=== PATIENT | male | born 1955 | race Caucasian/White ===

== ENCOUNTER → 2016-10-27 | Outpatient (CLI) | payer BC ==
[~2016-10-27] MED LIST: FEXO1TAB46 PO; GADAVIST IV PRN; IBUP-1050 PO; OMEG10007 PO; PROB500T8 PO
--- NOTE | 2016-10-27 17:15 | DIAGNOSTIC IMAGING REPORT ---
MRI OF THE BRAIN WITHOUT AND WITH IV CONTRAST CLINICAL HISTORY: LEFT FACIAL PARESTHESIA POSSIBLE STROKE COMPARISON STUDY: No previous studies for comparison. TECHNIQUE: MRI of the brain was performed from the vertex to the skull base utilizing various T1 and T2 weighted sequences. Following the IV administration of 10 mL of Gadavist contrast, additional enhanced images were obtained. FINDINGS: Sagittal T1, axial diffusion, proton density and T2 weighted axial, coronal FLAIR, and pre and post axial T1-weighted images were acquired. These were supplemented with post gadolinium coronal T1 weighted images. No intra or extra-axial mass lesions are visualized. Axial diffusion-weighted images reveal no evidence of acute or subacute infarction. There is no evidence of ventricular dilatation. Proton density T2-weighted and FLAIR images reveal a few foci of increased T2 signal within the white matter, likely on a small vessel basis, and not unexpected for age. There are no abnormal flow voids. There is no evidence of pathologic enhancement. There is a right maxillary sinus retention cyst. IMPRESSION: 1. No acute intracranial findings 2. No evidence of acute or subacute infarction 3. No evidence of intracranial mass Electronically signed by: Dev Rios M.D. 10/27/2016 5:14 PM Dictated Date/Time: 10/27/2016 5:11 PM
== END | disposition home or self-care (01) ==
LOC: C.MRI 15:51
PROVIDERS: ATTEND Internal Medicine
DX: G51.0 Bell's palsy (principal)

== ENCOUNTER → 2017-05-22 | Day surgery (SDC) | payer BC ==
[~2017-05-22] VITALS: Ht 185.4 cm; Wt 112.3 kg
[~2017-05-22] MED LIST changes: -GADAVIST IV PRN; +LIDOCAINE HCL 2% 2 ML VIAL (20MG/ML) ONE; +PROPOFOL IV EMULSION 10 MG/ML 20 ML VIAL IV ONE
[2017-05-22 12:38] VITALS: TEMP 37.1
[2017-05-22 12:41] VITALS: Ht 185.4 cm; Wt 112.3 kg
--- NOTE | 2017-05-22 13:57 | Endo History and Physical ---
History & Physical Date of Service: May 22, 2017. Chief Complaint: HX COLON CA Referring Physician: DR. CHRISTINE ESTRADA History of Present Illness For colonoscopy Past Medical History Gastrointestinal Disorder, Cancer Past Surgical History Hx Cardiac Surgery: No Hx Internal Defibrillator: No Hx Pacemaker: No Hx Abdominal Surgery: Yes (COLON) Hx of Implantable Prosthesis: No Hx Post-Op Nausea and Vomiting: No Hx Cancer Surgery: Yes Hx Thoracic Surgery: No Hx Orthopedic: No Hx Urinary Tract Surgery: No Family History Colon CA Social History Smoking Status: Former Smoker Hx Substance Use: No Allergies Coded Allergies: Allopurinol (Verified Allergy, Intermediate, HIVES AND ITCHING, 05/22/17) Uncoded Allergies: UNCLAS THER/AG (Allergy, Unknown, ENVIRONMENTAL WOOL, 10/26/09) Current Medications Reported Home Medications Medications Dose Route/Sig Max Daily Dose Days Date Category [place]-3 (Fish Oil) 1 Ea Cap 1 Cap PO QD 05/22/17 Reported Advil (Ibuprofen) 200 Mg Tab 200-600 Mg PO Q4H PRN 05/01/14 Reported Yaneth (Fexofenadine Hcl) 180 Mg Tab 180 Mg PO DAILY 05/01/14 Reported Benemid (Probenecid) 500 Mg Tab 500 Mg PO BID 06/12/09 Reported Vital Signs Weight (Kilograms): 112.27 Height (Feet): 6 Height (Inches): 1 Date Time Temp Pulse Resp B/P (MAP) Pulse Ox O2 Delivery O2 Flow Rate FiO2 05/22/17 12:38 37.1 81 18 162/87 (112) 97 Room Air Physical Exam General Appearance: WD/WN Respiratory/Chest: Respiratory effort: no dyspnea Cardiovascular: Heart Auscultation: RRR Abdomen: Inspection & Palpation: soft Assessment and Plan Colon cancer for colonoscopy
--- NOTE | 2017-05-22 14:16 | Discharge Instructions ---
Endoscopy Patient Instructions Date / Procedure(s) Performed May 22, 2017. Colonoscopy Allergy Information Coded Allergies: Allopurinol (Verified Allergy, Intermediate, HIVES AND ITCHING, 05/22/17) Uncoded Allergies: UNCLAS THER/AG (Allergy, Unknown, ENVIRONMENTAL WOOL, 10/26/09) Discharge Date / Findings May 22, 2017. rectal polyp Medication Instructions Restart Stopped Medication(s): resume meds Reported Home Medications Medications Dose Route/Sig Max Daily Dose Days Date Category [place]-3 (Fish Oil) 1 Ea Cap 1 Cap PO QD 05/22/17 Reported Advil (Ibuprofen) 200 Mg Tab 200-600 Mg PO Q4H PRN 05/01/14 Reported Yaneth (Fexofenadine Hcl) 180 Mg Tab 180 Mg PO DAILY 05/01/14 Reported Benemid (Probenecid) 500 Mg Tab 500 Mg PO BID 06/12/09 Reported Provider Instructions Activity Restrictions - No exercising or heavy lifting for 24 hours. - Do not drink alcohol the day of the procedure. - Do not drive a car or operate machinery until the day after the procedure. - Do not make any important decisions or sign important papers in 24 hours after the procedure. Following Day: - Return to full activity which may include returning to work/school. Diet Start your diet with liquids and light foods (jello, soup, juice, toast). Then eat your usual diet if not nauseated. Treatment For Common After Affects For mild abdominal pain, bloating, or excessive gas: - Rest - Eat lightly - Lie on right side Follow-Up Information Follow-up with DR. CHRISTINE ESTRADA as scheduled Anesthesia Information What You Should Know You have had a procedure that required some medicine to reduce anxiety and discomfort. This treatment is called moderate sedation. After receiving the treatment, you may be sleepy, but you will be able to breathe on your own. The effects of the treatment may last for several hours. Follow these instructions along with Activity/Diet recommendations noted above: * Do NOT do anything where dizziness or clumsiness would be dangerous. * Rest quietly at home today, then you can be up and about tomorrow. * Have a responsible person stay with you the rest of today. * You may have had an I.V. today. If so, you may take the dressing off later today. Recommendations Call your doctor if: * Trouble breathing * Continuous vomiting for more than 24 hours * Temperature above 101 degrees * Severe abdominal pain or bloating * Pain not relieved by pain medicine ordered * There is increased drainage or redness from any incision * A large amount of rectal bleeding greater than 2-3 tablespoons. (If you had a polyp/s removed or have hemorrhoids, a small amount of blood - from the rectum is to be expected.) * You have any unanswered questions or concerns. IN THE EVENT OF A SERIOUS EMERGENCY, GO TO THE NEAREST EMERGENCY ROOM Your discharge instructions were prepared by provider Pablo Dominguez. Patient Instructions Signature Page Mehnaz Marques Patient (or Guardian) Signature/Date: I have read and understand the instructions given to me by my caregivers. Caregiver/RN/Doctor Signature/Date: The above-named patient and/or guardian has received patient instructions on this date. + Original Patient Signature Page (only) stays with chart. Please make copy for patient.
--- NOTE | 2017-05-22 14:19 | GI REPORT ---
Procedure Date: 05/22/2017 1:56 PM Procedure: Colonoscopy Indications: Personal history of malignant neoplasm of the colon Medicines: Propofol total dose 120 mg IV, Lidocaine 40 mg IV Complications: No immediate complications. Estimated Blood Loss: Estimated blood loss was minimal. Estimated blood loss was minimal. Procedure: Pre-Anesthesia Assessment: - Prior to the procedure, a History and Physical was performed, and patient medications, allergies and sensitivities were reviewed. The patient's tolerance of previous anesthesia was reviewed. - The risks and benefits of the procedure and the sedation options and risks were discussed with the patient. All questions were answered and informed consent was obtained. After I obtained informed consent, the scope was passed under direct vision. Throughout the procedure, the patient's blood pressure, pulse, and oxygen saturations were monitored continuously. The scope was introduced through the anus and advanced to the terminal ileum. The colonoscopy was performed without difficulty. The patient tolerated the procedure well. The quality of the bowel preparation was good. Findings: There was evidence of a prior end-to-side ileo-rectal anastomosis in the recto-sigmoid colon. This was patent and was characterized by inflammation. The anastomosis was traversed. The terminal ileum appeared normal. A 4 mm polyp was found in the rectum. The polyp was sessile. The polyp was removed with a cold snare. Resection and retrieval were complete. Estimated blood loss was minimal. Impression: - Patent end-to-side ileo-rectal anastomosis, characterized by inflammation. - The examined portion of the ileum was normal. - One 4 mm polyp in the rectum, removed with a cold snare. Resected and retrieved. Recommendation: - Discharge patient to home (ambulatory). - Continue present medications. - Await pathology results. - Return to primary care physician PRN. Pablo Dominguez M.D. Pablo Dominguez MD 05/22/2017 2:19:22 PM This report has been signed electronically. Note Initiated On: 05/22/2017 1:56 PM I attest to the content of the Intraoperative Record and orders documented therein, exceptions below
[2017-05-22 14:48] VITALS: BP 139/86; PULSE 73; O2SAT 96
--- NOTE | 2017-06-01 11:58 | Anesthesiology Progress Note ---
Anesthesia Post Op Note Date & Time Jun 01, 2017 at 11:57 Vital Signs Pain Intensity: 0 Notes Mental Status: alert / awake / arousable, participated in evaluation Pt Amnestic to Procedure: Yes Nausea / Vomiting: adequately controlled Pain: adequately controlled Airway Patency, RR, SpO2: stable & adequate BP & HR: stable & adequate Hydration State: stable & adequate Anesthetic Complications: no major complications apparent Patient seen 05/22/2017 in recovery. VSS. No complications.
== END | disposition home or self-care (01) ==
LOC: C.GI 12:10
PROVIDERS: ATTEND Internal Medicine Gastroenterology
DX: Z08 Encounter for follow-up examination after completed treatment for malignant neoplasm (principal); D12.8 Benign neoplasm of rectum; Z85.038 Personal history of other malignant neoplasm of large intestine; Z87.891 Personal history of nicotine dependence; Z90.49 Acquired absence of other specified parts of digestive tract; Z80.0 Family history of malignant neoplasm of digestive organs

== ENCOUNTER → 2017-10-14 | Outpatient (CLI) | payer OTHER ==
[~2017-10-14] MED LIST changes: -LIDOCAINE HCL 2% 2 ML VIAL (20MG/ML) ONE; -PROPOFOL IV EMULSION 10 MG/ML 20 ML VIAL IV ONE
--- NOTE | 2017-10-14 09:30 | DIAGNOSTIC IMAGING REPORT ---
KNEE 3 VIEWS CLINICAL HISTORY: R KNEE XRAY pain. Trauma. COMPARISON: None. DISCUSSION: Mild degenerative change all major joint compartments. No evidence for fracture or dislocation. No significant joint effusion. There is no evidence for soft tissue swelling. IMPRESSION: Mild degenerative change. No acute process. The above report was generated using voice recognition software. It may contain grammatical, syntax or spelling errors. Electronically signed by: Luis Bailey M.D. 10/14/2017 9:29 AM Dictated Date/Time: 10/14/2017 9:28 AM
== END | disposition home or self-care (01) ==
LOC: C.RAD1850 09:11
PROVIDERS: ATTEND Nurse Practitioner
DX: M25.561 Pain in right knee (principal)

== ENCOUNTER 2017-10-19 10:31 | Emergency (ER) | payer OTHER ==
[~2017-10-19] VITALS: Ht 185.4 cm; Wt 104.0 kg
[2017-10-19 10:34] VITALS: TEMP 36.4; Ht 185.4 cm; Wt 104.0 kg
[2017-10-19] MEDS ORDERED: OPTIRAY 320 IV PRN (11:15)
--- NOTE | 2017-10-19 11:18 | EMERGENCY ROOM VISIT NOTE ---
History Report prepared by Ildefonso: Ruby Day Under the Supervision of: Dr. Lenin Alba M.D. First contact with patient: 11:03 Chief Complaint: ABDOMINAL PAIN Stated Complaint: RIGHT SIDE - PAIN IN LEFT ABD/FLANK AREA - WC History of Present Illness The patient is a 62 year old male who presents to the Emergency Room with complaints of an episode of a fall occurring about a week ago. 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 The patient states when he fell on his right side. He states he "hurt" his right knee and right side. He notes right sided abdominal pain, right side flank pain, and right sided back pain. He denies any bruising, rib pain or blood in his urine. Presently, the patient rates his pain as an 8/10. He reports taking an 800 mg ibuprofen this morning. The patient's fall occurred on 10/13/16. He reports he already had an x-ray of his knee done which was unremarkable. The patient states he has been unable to sleep since his fall because of his pain. The patient was sent to the ED by occupational medicine. The patient has a history of colon cancer. Source of History: patient Onset: about a week ago Position: other (generalized) Quality: other (fall) Timing: other (episode) Associated Symptoms: + abdominal pain, No urinary symptoms Review of Systems See HPI for pertinent positives & negatives. A total of 10 systems reviewed and were otherwise negative. Past Medical & Surgical Medical Problems: (1) Colon cancer Surgical Problems: (1) History of appendectomy Family History Patient reports no known family medical history. Social History Smoking Status: Former Smoker Marital Status: Housing Status: lives with significant other Occupation Status: employed Current/Historical Medications Scheduled Fexofenadine Hcl (Yaneth), 180 MG PO DAILY Fish Oil ([place]-3), 1 CAP PO QD Probenecid (Benemid), 500 MG PO BID Scheduled PRN Ibuprofen (Advil), 800 MG PO Q4H PRN for Pain Allergies Coded Allergies: Allopurinol (Verified Allergy, Intermediate, HIVES AND ITCHING, 05/22/17) Uncoded Allergies: UNCLAS THER/AG (Allergy, Unknown, ENVIRONMENTAL WOOL, 10/26/09) Physical Exam Vital Signs Date Time Temp Pulse Resp B/P (MAP) Pulse Ox O2 Delivery O2 Flow Rate FiO2 10/19/17 14:30 72 20 98 10/19/17 13:56 78 20 139/73 95 Room Air 10/19/17 12:17 72 20 134/79 96 Room Air 10/19/17 10:34 36.4 76 20 158/95 100 Room Air Physical Exam GENERAL: Patient is in no acute distress. HEENT: No acute trauma, normocephalic atraumatic, mucous membranes moist, no nasal congestion, no scleral icterus. NECK: No stridor, no adenopathy, no meningismus, trachea is midline. LUNGS: Clear to auscultation bilaterally, no wheeze, no rhonchi, breath sounds equal. HEART: Without murmurs gallops or rubs, regular rate and rhythm. ABDOMEN: Tenderness along entire right side, no contusion, no peritonitis, no obvious hernia. Back: Tender along entire right lumbar musculature, no midline bony step-off or tenderness. CHEST: Slightly tender to right posterior ribs, no contusion. EXTREMITIES: No cyanosis or edema, full range of motion of all the joints without pain or difficulty, no signs for acute trauma. NEUROLOGIC: Oriented x 3, no acute motor or sensory deficits, no focal weakness. SKIN: No rash, no jaundice, no diaphoresis. Medical Decision & Procedures ER Provider Diagnostic Interpretation: Radiology results as stated below per my review and radiologist interpretation: TWO VIEW CHEST FINDINGS: PA and lateral chest radiographs are obtained. No prior studies are available for comparison at the time of dictation. The heart is top normal for projection. The pulmonary vasculature is noncongested. The lungs and pleural spaces are clear. There is no pneumothorax. The bony thorax is grossly intact. IMPRESSION: No acute cardiopulmonary abnormality. Electronically signed by: Lenin Sanchez M.D. L-SPINE MIN 4 VIEWS ROUTINE FINDINGS: There is slight retrolisthesis of L4 and L5. There is marked disc space narrowing at L4-L5 and L5-S1. No acute lumbar spine fracture is identified. There is moderate multilevel facet arthrosis. Moderate small bowel dilatation is noted. IMPRESSION: 1. No acute lumbar spine fracture or subluxation. 2. Moderate small bowel dilatation which could reflect a small bowel obstruction or ileus. 3. Severe multilevel degenerative disc disease and moderate multilevel facet arthrosis. Electronically signed by: Jose Juan Payne M.D. CT SCAN OF THE ABDOMEN AND PELVIS WITH IV CONTRAST FINDINGS: Lung bases: The heart is normal in size and without pericardial effusion. There are scattered coronary artery calcifications. Emphysematous change is suspected. There is no airspace consolidation or pleural effusion. Dependent atelectasis is observed. No pneumothorax is identified at the lung bases. Liver: The right lobe and the right portal vein appear diminutive. 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 The contrast-enhanced liver is otherwise normal in size, contour, and attenuation. There is no intrahepatic biliary ductal dilatation. The hepatic veins and portal veins are patent. Gallbladder: Unremarkable. Spleen: Normal in size and attenuation. Pancreas: Unremarkable. Adrenal glands: Unremarkable. Kidneys: The contrast enhanced kidneys are normal in size and without hydronephrosis. The kidneys enhance symmetrically. Abdominal vasculature: The abdominal aorta is normal in course and caliber noting mild atherosclerotic calcification. Bowel: A large duodenal diverticulum is noted. There are postoperative changes from subtotal colectomy with ileocolic anastomosis. The distal small bowel are mildly distended and fluid-filled measuring up to 3.6 cm. There is no convincing evidence of bowel obstruction anastomosis is widely patent. Peritoneum: There is no intraperitoneal free air or abdominal ascites. Lymphadenopathy: Prominent mesenteric lymph nodes measure up to 12 mm in short axis. Pelvic viscera: The bladder, prostate, and seminal vesicles are normal as imaged. Skeletal structures: No fracture is seen. There is mild to moderate lumbosacral spondylosis. A large hemangioma seen in the body of L1. No lytic or blastic lesions are identified. IMPRESSION: 1. There is no evidence of solid organ injury in the abdomen or pelvis. 2. There are postoperative changes from subtotal colectomy with ileocolic anastomosis. 3. There are numerous mildly distended and fluid-filled loops of distal small bowel. The anastomosis appears patent and this is of indeterminant etiology and significance. This may represent compensatory change due to subtotal colectomy or possibly a nonspecific enteritis. A low-grade/partial small bowel obstruction would be difficult to exclude but is considered less likely. Clinical correlation will be required. Electronically signed by: Lenin Sanchez M.D. Laboratory Results 10/19/17 11:30 10/19/17 11:30 Test 10/19/17 11:16 1/29/18 11:30 Urine Color DK YELLOW Urine Appearance CLEAR (CLEAR) Urine pH 6.0 (4.5-7.5) Urine Specific Many 1.027 (1.000-1.030) Urine Protein NEG (NEG) Urine Glucose (UA) NEG (NEG) Urine Ketones TRACE (NEG) Urine Occult Blood NEG (NEG) Urine Nitrite NEG (NEG) Urine Bilirubin NEG (NEG) Urine Urobilinogen NEG (NEG) Urine Leukocyte Esterase NEG (NEG) Red Blood Count 4.99 M/uL (4.7-6.1) Mean Corpuscular Volume 92.4 fL (80-100) Mean Corpuscular Hemoglobin 32.9 pg (25-34) Mean Corpuscular Hemoglobin Concent 35.6 g/dl (32-36) RDW Standard Deviation 42.4 fL (36.4-46.3) RDW Coefficient of Variation 12.5 % (11.5-14.5) Mean Platelet Volume 11.1 fL (7.4-10.4) Anion Gap 9.0 mmol/L (3-11) Est Creatinine Clear Calc Drug Dose 96.3 ml/min Estimated GFR () 91.5 Estimated GFR (Non- 79.0 BUN/Creatinine Ratio 21.4 (10-20) Calcium Level 8.8 mg/dl (8.5-10.1) Laboratory results reviewed by me. ED Course 1104: The patient was evaluated in room C5. A complete history and physical exam was performed. 1407: I updated the patient on his test results. 1420: Reevaluated the patient. Discussed results and discharge instructions: He verbalized understanding and agreement. The patient is ready for discharge. Medical Decision Differential diagnoses: lumbar fracture, lumbar contusion, liver or kidney injury, electrolyte imbalance, anemia, hematuria, abdominal wall hematoma. There is no leukocytosis or concerning anemia. No significant electrolyte abnormality or kidney failure. Urinalysis does not show hematuria or infection. Lumbar spine series does not show evidence for fracture. Chest film does not show pneumonia or rib fracture. Abdominal and pelvis CT shows changes consistent with his colectomy, no evidence for acute traumatic process. Ileus was questioned on the CT. The patient has been having regular and normal bowel movements, I suspect the changes on CT are from the colectomy, I do not think he has a bowel obstruction or ileus. The patient was reassured by his testing. He appears contused I believe from the fall. He can continue to follow with his occupational medicine physician. Medication Reconcilliation Current Medication List: was personally reviewed by me Blood Pressure Screening Patient's blood pressure: Elevated blood pressure Blood pressure disposition: Elevated BP felt to be situational Impression Primary Impression: Right sided abdominal pain Additional Impressions: Right flank pain Right low back pain Status post fall Scribe Attestation The scribe's documentation has been prepared under my direction and personally reviewed by me in its entirety. I confirm that the note above accurately reflects all work, treatment, procedures, and medical decision making performed by me. Departure Information Dispostion Home / Self-Care Referrals Michael Eng M.D. (PCP) Forms Call Back Authorization, HOME CARE DOCUMENTATION FORM, IMPORTANT VISIT INFORMATION Patient Instructions My [facility] MDconnectME Additional Instructions tylenol for pain heat to the sore areas may help follow with occupational medicine for work advice lab testing and imaging was ok today--no traumatic findings return if worsening Problem Qualifiers
[2017-10-19 11:44] LABS: HEMATOCRIT 46.1 % (42-52); HEMOGLOBIN 16.4 g/dL (14.0-18.0); MEAN CELL VOLUME 92.4 fL (80-100); MEAN CORPUSCULAR HEMOGLOBIN 32.9 pg (25-34); MEAN CORPUSCULAR HGB CONC 35.6 g/dl (32-36); MEAN PLATELET VOLUME 11.1 fL (7.4-10.4); PLATELET COUNT 163 K/uL (130-400); RED CELL DISTRIBUTION WIDTH CV 12.5 % (11.5-14.5); RED CELL DISTRIBUTION WIDTH SD 42.4 fL (36.4-46.3); WHITE BLOOD COUNT 8.05 K/uL (4.8-10.8)
[2017-10-19 12:04] LABS: CALCIUM 8.8 mg/dl (8.5-10.1); CREATININE 1.02 mg/dl (0.60-1.40)
--- NOTE | 2017-10-19 12:15 | DIAGNOSTIC IMAGING REPORT ---
TWO VIEW CHEST CLINICAL HISTORY: Fall. Right-sided chest wall pain.. FINDINGS: PA and lateral chest radiographs are obtained. No prior studies are available for comparison at the time of dictation. The heart is top normal for projection. The pulmonary vasculature is noncongested. The lungs and pleural spaces are clear. There is no pneumothorax. The bony thorax is grossly intact. IMPRESSION: No acute cardiopulmonary abnormality. Electronically signed by: Lenin Sanchez M.D. 10/19/2017 12:13 PM Dictated Date/Time: 10/19/2017 12:10 PM
--- NOTE | 2017-10-19 12:33 | DIAGNOSTIC IMAGING REPORT ---
L-SPINE MIN 4 VIEWS ROUTINE CLINICAL HISTORY: Back pain following fall. COMPARISON: None FINDINGS: There is slight retrolisthesis of L4 and L5. There is marked disc space narrowing at L4-L5 and L5-S1. No acute lumbar spine fracture is identified. There is moderate multilevel facet arthrosis. Moderate small bowel dilatation is noted. IMPRESSION: 1. No acute lumbar spine fracture or subluxation. 2. Moderate small bowel dilatation which could reflect a small bowel obstruction or ileus. 3. Severe multilevel degenerative disc disease and moderate multilevel facet arthrosis. Electronically signed by: Jose Juan Payne M.D. 10/19/2017 12:32 PM Dictated Date/Time: 10/19/2017 12:30 PM
--- NOTE | 2017-10-19 13:43 | DIAGNOSTIC IMAGING REPORT ---
CT SCAN OF THE ABDOMEN AND PELVIS WITH IV CONTRAST CLINICAL HISTORY: Trauma. COMPARISON STUDY: Abdominal CT dated 05/24/2009. TECHNIQUE: Following the IV administration of 94 cc of Optiray 320, CT scan of the abdomen and pelvis is performed from the lung bases to the proximal femora. Images are reviewed in the axial, sagittal, and coronal planes. IV contrast was administered without complication. A dose lowering technique was utilized adhering to the principles of ALARA. CT DOSE: 777.32 mGy.cm FINDINGS: Lung bases: The heart is normal in size and without pericardial effusion. There are scattered coronary artery calcifications. Emphysematous change is suspected. There is no airspace consolidation or pleural effusion. Dependent atelectasis is observed. No pneumothorax is identified at the lung bases. Liver: The right lobe and the right portal vein appear diminutive. 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 The contrast-enhanced liver is otherwise normal in size, contour, and attenuation. There is no intrahepatic biliary ductal dilatation. The hepatic veins and portal veins are patent. Gallbladder: Unremarkable. Spleen: Normal in size and attenuation. Pancreas: Unremarkable. Adrenal glands: Unremarkable. Kidneys: The contrast enhanced kidneys are normal in size and without hydronephrosis. The kidneys enhance symmetrically. Abdominal vasculature: The abdominal aorta is normal in course and caliber noting mild atherosclerotic calcification. Bowel: A large duodenal diverticulum is noted. There are postoperative changes from subtotal colectomy with ileocolic anastomosis. The distal small bowel are mildly distended and fluid-filled measuring up to 3.6 cm. There is no convincing evidence of bowel obstruction anastomosis is widely patent. Peritoneum: There is no intraperitoneal free air or abdominal ascites. Lymphadenopathy: Prominent mesenteric lymph nodes measure up to 12 mm in short axis. Pelvic viscera: The bladder, prostate, and seminal vesicles are normal as imaged. Skeletal structures: No fracture is seen. There is mild to moderate lumbosacral spondylosis. A large hemangioma seen in the body of L1. No lytic or blastic lesions are identified. IMPRESSION: 1. There is no evidence of solid organ injury in the abdomen or pelvis. 2. There are postoperative changes from subtotal colectomy with ileocolic anastomosis. 3. There are numerous mildly distended and fluid-filled loops of distal small bowel. The anastomosis appears patent and this is of indeterminant etiology and significance. This may represent compensatory change due to subtotal colectomy or possibly a nonspecific enteritis. A low-grade/partial small bowel obstruction would be difficult to exclude but is considered less likely. Clinical correlation will be required. Electronically signed by: Lenin Sanchez M.D. 10/19/2017 1:42 PM Dictated Date/Time: 10/19/2017 1:27 PM
[2017-10-19 13:56] VITALS: BP 139/73
[2017-10-19 14:30] VITALS: PULSE 72; O2SAT 98
== END 2017-10-19 14:33 | disposition home or self-care (01) ==
LOC: C.EDB 10:35 → C.EDC 14:33
DX: R10.9 Unspecified abdominal pain (principal); M54.5 Low back pain; W10.8XXA Fall (on) (from) other stairs and steps, initial encounter; Y99.0 Civilian activity done for income or pay; Y93.89 Activity, other specified; Y92.89 Other specified places as the place of occurrence of the external cause; Z90.49 Acquired absence of other specified parts of digestive tract; Z85.038 Personal history of other malignant neoplasm of large intestine; Z87.891 Personal history of nicotine dependence

== ENCOUNTER 2017-10-21 15:13 | Inpatient (IN) | payer OTHER ==
[~2017-10-21] VITALS: Ht 185.4 cm; Wt 103.2 kg
[2017-10-21] MEDS ORDERED: OPTIRAY 320 IV PRN (17:00)
[2017-10-21 17:52] LABS: BASO % 0.2 %; BASO ABS # 0.02 K/uL (0-0.2); EOS % 0.5 %; EOS ABS # 0.05 K/uL (0-0.5); HEMATOCRIT 44.9 % (42-52); HEMOGLOBIN 16.1 g/dL (14.0-18.0); IG# 0.03 K/uL (0.00-0.02); LYMPH % 15.7 %; LYMPH ABS # 1.43 K/uL (1.2-3.4); MEAN CELL VOLUME 91.4 fL (80-100); MEAN CORPUSCULAR HEMOGLOBIN 32.8 pg (25-34); MEAN CORPUSCULAR HGB CONC 35.9 g/dl (32-36); MEAN PLATELET VOLUME 11.1 fL (7.4-10.4); MONO % 10.2 %; MONO ABS # 0.93 K/uL (0.11-0.59); NEUT % 73.1 %; NEUT ABS # 6.64 K/uL (1.4-6.5); PLATELET COUNT 176 K/uL (130-400); RED CELL DISTRIBUTION WIDTH CV 12.1 % (11.5-14.5); RED CELL DISTRIBUTION WIDTH SD 40.7 fL (36.4-46.3)
[2017-10-21 18:16] LABS: ALBUMIN 3.6 gm/dl (3.4-5.0); CALCIUM 9.4 mg/dl (8.5-10.1); CREATININE 0.92 mg/dl (0.60-1.40); TOTAL PROTEIN 7.6 gm/dl (6.4-8.2)
--- NOTE | 2017-10-21 19:26 | DIAGNOSTIC IMAGING REPORT ---
ABDOMEN AND PELVIS CT WITH IV AND ORAL CONTRAST CT DOSE: 831.31 mGy.cm HISTORY: Diffuse abdominal pain. Fall. History of small bowel obstruction. TECHNIQUE: Multiaxial CT images of the abdomen and pelvis were performed following the use of intravenous and oral contrast. A dose lowering technique was utilized adhering to the principles of ALARA. COMPARISON STUDY: Abdomen and pelvis CT 10/19/2017. FINDINGS: The lung bases are clear. There is a small bleb within the left lung base. No pneumoperitoneum. No pneumatosis. No fractures within the visualized osseous structures. There is a 3 cm diverticulum at the second portion of the duodenum. Small focus of nodular thickening of the gallbladder fundus favors adenomyomatosis. This remains unchanged. The liver, spleen, adrenal glands, and pancreas are unremarkable. Mild bilateral perinephric edema. Normal bladder. No hydronephrosis. No retroperitoneal lymphadenopathy. Normal bladder. Status post subtotal colectomy with ileocolonic anastomosis at the mid sigmoid colon:. There again noted multiple distended and fluid-filled loops of small bowel seen throughout the abdomen. These measure up to 4.1 cm in diameter. The degree of small bowel distention is slightly progressed. A clear transition point is not well identified. However, there is a decompressed short segment of small bowel within the right mid abdomen on image 279. Therefore, this could represent a transition point for a small bowel obstruction. The proximal loops of jejunum are decompressed. IMPRESSION: 1. Multiple mildly distended fluid-filled loops of small bowel have progressed. A clear transition point is not well-defined. However there is a short segment of decompressed small bowel in the right mid abdomen which could represent a transition point for a small bowel obstruction. 2. Postoperative changes as described above. Electronically signed by: Gopi Gooden M.D. 10/21/2017 7:25 PM Dictated Date/Time: 10/21/2017 7:13 PM
[2017-10-21] MEDS ORDERED: MoRPHine SULFATE 10 MG/ML CARP/VIAL IV STA (19:59)
[2017-10-21] MEDS ORDERED: ONDANSETRON INJ 2 MG/ML 2 ML VIAL IV STA (19:59)
[2017-10-21] MEDS ORDERED: HEPARIN SOD 5000 UNIT/0.5 ML CARP SQ SCH (21:45)
[2017-10-21] MEDS ORDERED: ONDANSETRON INJ 2 MG/ML 2 ML VIAL IV PRN (21:45)
--- NOTE | 2017-10-21 21:49 | History and Physical ---
History & Physical Date & Time of Service: Oct 21, 2017 at 21:37 Chief Complaint: Stomach Ache Primary Care Physician: Michael Eng M.D. History of Present Illness Source: patient 62 y/o M Hx HPL, subtotal colectomy 2000 due to colon CA. Presenting with abdominal pain and nausea x 3 days. His symptoms followed a fall onto his R side at work. He states that he becomes distended when trying to eat or drink a small amount. He has not vomited. A CT abdomen was obtained in the ER and is consistent with an SBO. He has not had any previous obstructions. Past Medical/Surgical History 1) Colon CA - resected with subtotal colectomy and anastomosis at mid sigmoid 2000. Did not require chemo radiation. Family History Patient reports no known family medical history. Father due to complications of Alzheimer dementia Social History Smoking Status: Never Smoker Marital Status: Occupational Status: employed Immunizations History of Influenza Vaccine: No History of Tetanus Vaccine?: No History of Pneumococcal: No History of Hepatitis B Vaccine: No Multi-Drug Resistant Organisms History of MDRO: No Allergies Coded Allergies: Allopurinol (Verified Allergy, Intermediate, HIVES AND ITCHING, 05/22/17) Uncoded Allergies: UNCLAS THER/AG (Allergy, Unknown, ENVIRONMENTAL WOOL, 10/26/09) Home Medications Scheduled Fexofenadine Hcl (Yaneth), 180 MG PO DAILY Fish Oil ([place]-3), 1 CAP PO QD Probenecid (Benemid), 500 MG PO BID Review of Systems Constitutional: No fever, No chills, No sweats Eyes: No worsening of vision ENT: No hearing loss, No unusual epistaxis, No nasal symptoms Respiratory: No cough, No sputum, No wheezing Cardiovascular: No chest pain, No orthopnea, No PND Abdomen: + pain, + nausea, No vomiting Musculoskeletal: No joint pain Genitourinary - Male: No hematuria, No dysuria, No urinary frequency Neurologic: No memory loss, No paralysis, No weakness Psychiatric: No depression symptoms Endocrine: No fatigue Hematologic / Lymphatic: No abnormal bleeding/bruising Integumentary: No rash Allergic / Immunologic: No environmental allergies Physical Exam Vital Signs Date Time Temp Pulse Resp B/P (MAP) Pulse Ox O2 Delivery O2 Flow Rate FiO2 10/21/17 20:18 79 16 154/88 96 Room Air 10/21/17 18:54 80 18 162/91 95 Room Air 10/21/17 15:26 36.8 83 16 164/99 96 Room Air General Appearance: WD/WN, no apparent distress Head: normocephalic Eyes: normal inspection ENT: normal ENT inspection, pharynx normal Neck: supple, no JVD Respiratory/Chest: chest non-tender, lungs clear, normal breath sounds Cardiovascular: regular rate, rhythm, no edema, no gallop Abdomen/GI: + tenderness, + guarding, + pertinent finding (Very diffusely tender abdomen R > L- pt guards when lightly palpated) Back: normal inspection, no CVA tenderness Extremities/Musculoskelatal: normal inspection, no calf tenderness, normal capillary refill, no pedal edema, normal range of motion 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, no motor/sensory deficits, alert, oriented x 3 Skin: normal color Diagnostics Laboratory Results Results Past 24 Hours Test 10/21/17 17:20 10/21/17 17:27 Range/Units Urine Color YELLOW Urine Appearance CLEAR CLEAR Urine pH 6.0 4.5-7.5 Urine Specific [place] 1.018 1.000-1.030 Urine Protein NEG NEG Urine Glucose (UA) NEG NEG Urine Ketones NEG NEG Urine Occult Blood NEG NEG Urine Nitrite NEG NEG Urine Bilirubin NEG NEG Urine Urobilinogen NEG NEG Urine Leukocyte Esterase NEG NEG Urine WBC (Auto) 1-5 0-5 /hpf Urine RBC (Auto) 0-4 0-4 /hpf Urine Hyaline Casts (Auto) 1-5 0-5 /lpf Urine Epithelial Cells (Auto) 0-5 0-5 /lpf Urine Bacteria (Auto) NEG NEG Urine Crystals CALCIUM OXALATE NONE PRSENT White Blood Count 9.10 4.8-10.8 K/uL Red Blood Count 4.91 4.7-6.1 M/uL Hemoglobin 16.1 14.0-18.0 g/dL Hematocrit 44.9 42-52 % Mean Corpuscular Volume 91.4 80-100 fL Mean Corpuscular Hemoglobin 32.8 25-34 pg Mean Corpuscular Hemoglobin Concent 35.9 32-36 g/dl Platelet Count 176 130-400 K/uL Mean Platelet Volume 11.1 7.4-10.4 fL Neutrophils (%) (Auto) 73.1 % Lymphocytes (%) (Auto) 15.7 % Monocytes (%) (Auto) 10.2 % Eosinophils (%) (Auto) 0.5 % Basophils (%) (Auto) 0.2 % Neutrophils # (Auto) 6.64 1.4-6.5 K/uL Lymphocytes # (Auto) 1.43 1.2-3.4 K/uL Monocytes # (Auto) 0.93 0.11-0.59 K/uL Eosinophils # (Auto) 0.05 0-0.5 K/uL Basophils # (Auto) 0.02 0-0.2 K/uL RDW Standard Deviation 40.7 36.4-46.3 fL RDW Coefficient of Variation 12.1 11.5-14.5 % Immature Granulocyte % (Auto) 0.3 % Immature Granulocyte # (Auto) 0.03 0.00-0.02 K/uL Sodium Level 133 136-145 mmol/L Potassium Level 4.0 3.5-5.1 mmol/L Chloride Level 100 98-107 mmol/L Carbon Dioxide Level 26 21-32 mmol/L Anion Gap 7.0 3-11 mmol/L Blood Urea Nitrogen 13 7-18 mg/dl Creatinine 0.92 0.60-1.40 mg/dl Est Creatinine Clear Calc Drug Dose 107.8 ml/min Estimated GFR () 103.7 Estimated GFR (Non- 89.5 BUN/Creatinine Ratio 14.3 10-20 Random Glucose 138 70-99 mg/dl Calcium Level 9.4 8.5-10.1 mg/dl Total Bilirubin 0.7 0.2-1 mg/dl Direct Bilirubin 0.2 0-0.2 mg/dl Aspartate Amino Transf (AST/SGOT) 30 15-37 U/L Alanine Aminotransferase (ALT/SGPT) 52 12-78 U/L Alkaline Phosphatase 36 45-117 U/L Total Protein 7.6 6.4-8.2 gm/dl Albumin 3.6 3.4-5.0 gm/dl Lipase 104 73-393 U/L Diagnostic Radiology IMPRESSION: 1. Multiple mildly distended fluid-filled loops of small bowel have progressed. A clear transition point is not well-defined. However there is a short segment of decompressed small bowel in the right mid abdomen which could represent a transition point for a small bowel obstruction. 2. Postoperative changes as described above. Impression Assessment and Plan 62 y/o M Hx HPL, subtotal colectomy 2000 due to colon CA. Presenting with abdominal pain and nausea x 3 days. His symptoms followed a fall onto his R side at work. He states that he becomes distended when trying to eat or drink a small amount. He has not vomited. A CT abdomen was obtained in the ER and is consistent with an SBO. He has not had any previous obstructions. Pt is admitted for SBO management. NGT will be placed due to distention and tenderness. NPO, IVF, antiemetics and analgesics PRN. A surgery evaluation is pending. We will check a lactic acid and amylase due to degree of tenderness. Dull code - Heparin prophylaxis to start AM Total time for this admit including review of labs, meds, records, imaging - discussion with pt and ER attending - 40 min Level of Care Med/Surg Resuscitation Status FULL RESUSCITATION VTE Prophylaxis Given or contraindicated: Unfractionated heparin SQ
[2017-10-21] MEDS ORDERED: MoRPHine SULFATE 4 MG/ML 1 ML CARP\\VIAL IV PRN (22:15)
--- NOTE | 2017-10-21 22:58 | EMERGENCY ROOM VISIT NOTE ---
History Report prepared by Ildefonso: Maricel Candelario Under the Supervision of: Dr. Zeeshan Gallegos D.O. First contact with patient: 16:32 Chief Complaint: ABDOMINAL PAIN Stated Complaint: STOMACH ACHE Nursing Triage Summary: Pt c/o stomach trouble since he fell down steps at work. Has had testing and they haven't found anything wrong, but he still has pain in mid upper and lower abdomen. States when he eats he stomach swells, has no large intestine, hx colon cancer. Diarrhea since October 14. ASssociates Nausea. Denies Vomiting History of Present Illness The patient is a 62 year old male who presents to the Emergency Room with complaints of worsening diffuse abdominal pain for the past week. The patient reports that he fell down stairs at work on 10/14/17. He landed on the cement floor and he has been having abdominal pain since that time. The patient was seen in the ED for these symptoms 10/19/17. He had a negative abdominal CT at that time. He reports that he is still having pain. He rates his current pain as an 8/10 in severity. Eating will occasionally make his pain worse, but occasionally he is fine after eating. He reports a subjective fever and nausea. Pt has diarrhea which is chronic due to a hx of colon cancer and a bowel resection. Pt denies change in vision, chest pain, shortness of breath, vomiting , urinary symptoms, and melena. Source of History: patient Onset: 1 week [employer] Position: abdomen Symptom Intensity: 8/10 Timing: worsening Modifying Factors (Worsening): eating Associated Symptoms: + fevers, + nausea, No chest pain, No SOB, No vomiting , No melena, No urinary symptoms Review of Systems See HPI for pertinent positives & negatives. A total of 10 systems reviewed and were otherwise negative. Past Medical & Surgical Medical Problems: (1) Colon cancer (2) SBO (small bowel obstruction) Surgical Problems: (1) History of appendectomy Family History Patient reports no known family medical history. Social History Smoking Status: Never Smoker Marital Status: Housing Status: lives with significant other Occupation Status: employed Current/Historical Medications Scheduled Fexofenadine Hcl (Yaneth), 180 MG PO DAILY Fish Oil ([place]-3), 1 CAP PO QD Probenecid (Benemid), 500 MG PO BID Allergies Coded Allergies: Allopurinol (Verified Allergy, Intermediate, HIVES AND ITCHING, 05/22/17) Uncoded Allergies: UNCLAS THER/AG (Allergy, Unknown, ENVIRONMENTAL WOOL, 10/26/09) Physical Exam Vital Signs Date Time Temp Pulse Resp B/P (MAP) Pulse Ox O2 Delivery O2 Flow Rate FiO2 10/21/17 22:10 69 18 140/79 96 Room Air 10/21/17 20:18 79 16 154/88 96 Room Air 10/21/17 18:54 80 18 162/91 95 Room Air 10/21/17 15:26 36.8 83 16 164/99 96 Room Air Physical Exam GENERAL: Sitting up in bed, alert, well appearing, well nourished, no distress, non-toxic EYE EXAM: normal conjunctiva. OROPHARYNX: no exudate, no erythema, lips, buccal mucosa, and tongue normal and mucous membranes are moist NECK: supple, no nuchal rigidity, no adenopathy, non-tender LUNGS: Clear to auscultation. Normal chest wall mechanics HEART: no murmurs, S1 normal and S2 normal ABDOMEN: abdomen soft, old lower abdominal scars, tenderness in the left and right abdomen, normo-active bowel sounds, no masses, no rebound or guarding. BACK: Back is symmetrical on inspection and there is no deformity, no midline tenderness, no CVA tenderness. SKIN: no rashes and no bruising UPPER EXTREMITIES: upper extremities are grossly normal. LOWER EXTREMITIES: No pitting edema. NEURO EXAM: Normal sensorium, cranial nerves II-XII grossly intact, normal speech, no gross weakness of arms, no gross weakness of legs. Medical Decision & Procedures ER Provider Diagnostic Interpretation: Radiology results as stated below per my review and the radiologist's interpretation: ABDOMEN AND PELVIS CT WITH IV AND ORAL CONTRAST CT DOSE: 831.31 mGy.cm HISTORY: Diffuse abdominal pain. Fall. History of small bowel obstruction. TECHNIQUE: Multiaxial CT images of the abdomen and pelvis were performed following the use of intravenous and oral contrast. A dose lowering technique was utilized adhering to the principles of ALARA. COMPARISON STUDY: Abdomen and pelvis CT 10/19/2017. FINDINGS: The lung bases are clear. There is a small bleb within the left lung base. No pneumoperitoneum. No pneumatosis. No fractures within the visualized osseous structures. There is a 3 cm diverticulum at the second portion of the duodenum. Small focus of nodular thickening of the gallbladder fundus favors adenomyomatosis. This remains unchanged. The liver, spleen, adrenal glands, and pancreas are unremarkable. Mild bilateral perinephric edema. Normal bladder. No hydronephrosis. No retroperitoneal lymphadenopathy. Normal bladder. Status post subtotal colectomy with ileocolonic anastomosis at the mid sigmoid colon:. There again noted multiple distended and fluid-filled loops of small bowel seen throughout the abdomen. These measure up to 4.1 cm in diameter. The degree of small bowel distention is slightly progressed. A clear transition point is not well identified. However, there is a decompressed short segment of small bowel within the right mid abdomen on image 279. Therefore, this could represent a transition point for a small bowel obstruction. The proximal loops of jejunum are decompressed. IMPRESSION: 1. Multiple mildly distended fluid-filled loops of small bowel have progressed. A clear transition point is not well-defined. However there is a short segment of decompressed small bowel in the right mid abdomen which could represent a transition point for a small bowel obstruction. 2. Postoperative changes as described above. Electronically signed by: Gopi Gooden M.D. 10/21/2017 7:25 PM Dictated Date/Time: 10/21/2017 7:13 PM Laboratory Results 10/21/17 17:27 Red Blood Count 4.91, Mean Corpuscular Volume 91.4, Mean Corpuscular Hemoglobin 32.8, Mean Corpuscular Hemoglobin Concent 35.9, Mean Platelet Volume 11.1, Neutrophils (%) (Auto) 73.1, Lymphocytes (%) (Auto) 15.7, Monocytes (%) (Auto) 10.2, Eosinophils (%) (Auto) 0.5, Basophils (%) (Auto) 0.2, Neutrophils # (Auto ) 6.64, Lymphocytes # (Auto) 1.43, Monocytes # (Auto) 0.93, Eosinophils # (Auto ) 0.05, Basophils # (Auto) 0.02 10/21/17 17:27 Test 10/21/17 17:20 10/21/17 17:27 10/21/17 22:48 Urine Color YELLOW Urine Appearance CLEAR (CLEAR) Urine pH 6.0 (4.5-7.5) Urine Specific [place] 1.018 (1.000-1.030) Urine Protein NEG (NEG) Urine Glucose (UA) NEG (NEG) Urine Ketones NEG (NEG) Urine Occult Blood NEG (NEG) Urine Nitrite NEG (NEG) Urine Bilirubin NEG (NEG) Urine Urobilinogen NEG (NEG) Urine Leukocyte Esterase NEG (NEG) Urine WBC (Auto) 1-5 /hpf (0-5) Urine RBC (Auto) 0-4 /hpf (0-4) Urine Hyaline Casts (Auto) 1-5 /lpf (0-5) Urine Epithelial Cells (Auto) 0-5 /lpf (0-5) Urine Bacteria (Auto) NEG (NEG) Urine Crystals CALCIUM OXALATE (NONE White Blood Count 9.10 K/uL (4.8-10.8) Red Blood Count 4.91 M/uL (4.7-6.1) Hemoglobin 16.1 g/dL (14.0-18.0) Hematocrit 44.9 % (42-52) Mean Corpuscular Volume 91.4 fL (80-100) Mean Corpuscular Hemoglobin 32.8 pg (25-34) Mean Corpuscular Hemoglobin Concent 35.9 g/dl (32-36) Platelet Count 176 K/uL (130-400) Mean Platelet Volume 11.1 fL (7.4-10.4) Neutrophils (%) (Auto) 73.1 % Lymphocytes (%) (Auto) 15.7 % Monocytes (%) (Auto) 10.2 % Eosinophils (%) (Auto) 0.5 % Basophils (%) (Auto) 0.2 % Neutrophils # (Auto) 6.64 K/uL (1.4-6.5) Lymphocytes # (Auto) 1.43 K/uL (1.2-3.4) Monocytes # (Auto) 0.93 K/uL (0.11-0.59) Eosinophils # (Auto) 0.05 K/uL (0-0.5) Basophils # (Auto) 0.02 K/uL (0-0.2) RDW Standard Deviation 40.7 fL (36.4-46.3) RDW Coefficient of Variation 12.1 % (11.5-14.5) Immature Granulocyte % (Auto) 0.3 % Immature Granulocyte # (Auto) 0.03 K/uL (0.00-0.02) Anion Gap 7.0 mmol/L (3-11) Est Creatinine Clear Calc Drug Dose 107.8 ml/min Estimated GFR () 103.7 Estimated GFR (Non- 89.5 BUN/Creatinine Ratio 14.3 (10-20) Calcium Level 9.4 mg/dl (8.5-10.1) Total Bilirubin 0.7 mg/dl (0.2-1) Direct Bilirubin 0.2 mg/dl (0-0.2) Aspartate Amino Transf (AST/SGOT) 30 U/L (15-37) Alanine Aminotransferase (ALT/SGPT) 52 U/L (12-78) Alkaline Phosphatase 36 U/L (45-117) Total Protein 7.6 gm/dl (6.4-8.2) Albumin 3.6 gm/dl (3.4-5.0) Lipase 104 U/L (73-393) Laboratory results per my review. Medications Administered Medications (Trade) Dose Ordered Sig/Mendoza Route Start Time Stop Time Status Last Admin Dose Admin Morphine Sulfate (MoRPHine SULFATE INJ) 6 mg NOW STAT IV 10/21/17 19:59 10/21/17 20:00 DC 10/21/17 20:17 6 MG Ondansetron HCl (Zofran Inj) 4 mg NOW STAT IV 10/21/17 19:59 10/21/17 20:00 DC 10/21/17 20:17 4 MG ED Course ED COURSE: Vital signs were reviewed and showed hypertensive. The patients medical record was reviewed The above diagnostic studies were performed and reviewed. ED treatments and interventions as stated above. 1631: The patient was evaluated in room B3B. A complete history and physical examination was performed. 1956: Upon reevaluation, the patient is still uncomfortable. I discussed my findings with the patient and he understands and agrees with the treatment plan. Based on the patients age, coexisting illnesses, exam and lab findings the decision to treat as an inpatient was made. The patient remained stable while under my care. The patient will be evaluated for further management. 1958: Zofran 4 mg IV, Morphine sulfate 6 mg IV 1999: I spoke with Dr. Mcgowan. We discussed the patient's case. The patient will be evaluated by the [facility] for further management. 2143: At Dr. Mcgowan's request I discussed the patient's case with Dr. Garza of general surgery. She states that this patient can to the medicine team and is not surgical at this time. Medical Decision Differential diagnoses includes but is not limited to gastritis, peptic ulcer disease, GERD, gallbladder disease, pancreatitis, small bowel obstruction, acute coronary syndrome, pericarditis, ischemic bowel, irritable bowel disease, irritable bowel syndrome, appendicitis, diverticulitis, malignancy, hernia, urinary tract infection, torsion, perforation, trauma, infectious. Patient is a 62-year-old male that presents to ER for abdominal pain which has been worsening since his last ER visit. On exam he is tender diffusely. CT of the abdomen and pelvis shows small bowel obstruction. CBC all BMP, LFTs, bilirubin and lipase is unremarkable. UA was negative. Discussed with the patient updated him at bedside. Discussed with internal medicine and he recommended discussing with general surgery. I discussed case with general surgeon who recommended admission to internal medicine and they will evaluate in the morning. Medication Reconcilliation Current Medication List: was personally reviewed by me Blood Pressure Screening Patient's blood pressure: Elevated blood pressure Blood pressure disposition: Elevated BP felt to be situational Consults Time Called: 1956 Consulting Physician: Dr. Mcgowan Returned Call: [address] Mcgowan. We discussed the patients case. The patient will be evaluated by the [facility] for further management. Additional Consults: Time Called: 2140 Consulted Physician: Dr. Mcgowan Returned Call: 2143 Additional Comments: At Dr. Mcgowan's request I discussed the patient's case with Dr. Garza of general surgery. She states that this patient can to the medicine team and is not surgical at this time. Impression Primary Impression: Small bowel obstruction Scribe Attestation The scribe's documentation has been prepared under my direction and personally reviewed by me in its entirety. I confirm that the note above accurately reflects all work, treatment, procedures, and medical decision making performed by me. Departure Information Dispostion Being Evaluated By Hospitalist Referrals Michael Eng M.D. (PCP) Patient Instructions My [facility]
[2017-10-21 23:35] VITALS: BP 150/93; PULSE 74; TEMP 36.5; O2SAT 95; Ht 185.4 cm; Wt 103.2 kg
[2017-10-21 23:48] VITALS: BP 129/79; PULSE 69; TEMP 36.7; O2SAT 95
[2017-10-22] MEDS ORDERED: INFLUENZA VIRUS QUAD VACCINE 0.5 ML SYR IM. ONE (02:30)
[2017-10-22] MEDS ORDERED: INFLUENZA ADMINISTRATION CHARGE ONE (02:30)
[2017-10-22] MEDS: D5NSS + 20MEQ KCL 1,000 ML IV SCH ×2 (02:30→12:08)
[2017-10-22 08:16] VITALS: BP 121/75; PULSE 65; TEMP 36.6; O2SAT 95
[2017-10-22 08:29] LABS: CALCIUM 8.9 mg/dl (8.5-10.1); CREATININE 0.88 mg/dl (0.60-1.40)
--- NOTE | 2017-10-22 09:43 | Surgery Consultation ---
Consultation Date of Consultation: Oct 22, 2017. Attending Physician: Vickey Mcgowan M.D. Reason for Consultation: SBO History of Present Illness Mehnaz is a pleasant 62 year-old male who presented to emergency department last evening with complaint of abdominal pain, nausea, and diarrhea for the last week. States he sustained fall at work and fell on his right knee and then to his entire right side of his body. Then noticed diarrhea, generalized abdominal pain and nausea with intermittent vomiting. States the pain was generalized and sharp in nature. Would try to eat and would cause abdominal bloating and pain. S/p subtotal colectomy in 2000 for colon cancer. Did not require any chemotherapy or radiation. States he had ostomy with reversal 6 months later. No other abdominal surgeries. Has not had a bowel obstruction before. States he usually has multiple formed bowel movements daily but not diarrhea. Denies of any blood in stools. Denies fever, chills, sweats, chest pain, shortness of breath, difficulty breathing, difficulty urinating. ER work-up showed no leukocytosis. CT scan showing dilated small bowel loops measuring up to 4.1 cm and possible transition point in the right mid abdomen however not clearly identified. Since admission he states he is feeling better. Believes the NGT has helped with his bloating and pain. Has had about 3 liquid bowel movements this morning. Passing flatus. Past Medical/Surgical History Medical Problems: (1) Right flank pain Status: Acute (2) Right low back pain Status: Acute (3) Right sided abdominal pain Status: Acute (4) Small bowel obstruction Status: Acute (5) Status post fall Status: Acute Family History Patient reports no known family medical history. Social History Smoking Status: Former Smoker Marital Status: Housing Status: lives with significant other Occupation Status: employed Allergies Coded Allergies: Allopurinol (Verified Allergy, Intermediate, HIVES AND ITCHING, 05/22/17) Sheep Allergy (Verified Allergy, Unknown, WOOL, 10/22/17) Home Medications Scheduled Fexofenadine Hcl (Yaneth), 180 MG PO DAILY Fish Oil ([place]-3), 1 CAP PO QD Probenecid (Benemid), 500 MG PO BID Current Inpatient Medications Current Inpatient Medications Medications (Trade) Dose Ordered Sig/Mendoza Route Start Time Stop Time Status Last Admin Dose Admin Ioversol (Optiray 320) 100 ml UD PRN IV 10/21/17 17:00 10/25/17 16:59 Ondansetron HCl (Zofran Inj) 4 mg Q6H PRN IV 10/21/17 21:45 11/20/17 21:44 Morphine Sulfate (MoRPHine SULFATE INJ) 4 mg Q3H PRN IV 10/21/17 22:15 11/04/17 22:14 Potassium Chloride/Dextrose/ Sod Cl 1,000 ml @ 100 mls/hr Q10H IV 10/22/17 02:00 10/22/17 21:59 10/22/17 02:30 100 MLS/HR Review of Systems Constitutional: No fever, No chills, No sweats Respiratory: No cough, No shortness of breath Cardiovascular: No chest pain, No palpitations Abdomen: + pain, + nausea, + vomiting, + diarrhea, No constipation, No GI bleeding Genitourinary - Male: No hematuria, No dysuria Hematologic / Lymphatic: No abnormal bleeding/bruising Integumentary: No rash Physical Exam Date Time Temp Pulse Resp B/P (MAP) Pulse Ox O2 Delivery O2 Flow Rate FiO2 10/22/17 08:16 36.6 65 16 121/75 (90) 95 Room Air 10/22/17 07:15 Room Air 10/22/17 00:54 Room Air 10/21/17 23:48 36.7 69 16 129/79 (96) 95 Room Air 10/21/17 23:35 36.5 74 18 150/93 95 Room Air 10/21/17 22:10 69 18 140/79 96 Room Air 10/21/17 20:18 79 16 154/88 96 Room Air 10/21/17 18:54 80 18 162/91 95 Room Air 10/21/17 15:26 36.8 83 16 164/99 96 Room Air General Appearance: WD/WN, no apparent distress Head: normocephalic, atraumatic Eyes: sclerae normal ENT: hearing grossly normal, + pertinent finding (NGT present, clear bilious output) Neck: trachea midline Respiratory/Chest: lungs clear, no respiratory distress, no accessory muscle use Cardiovascular: regular rate, rhythm, no murmur Abdomen/GI: + tenderness (generalized tenderness on mild palpation with guarding present, no peritonitis, no rigidity), + distended (moderate distention ) Extremities/Musculoskelatal: normal inspection Neurologic/Psych: alert, normal mood/affect, oriented x 3 Skin: normal color, warm/dry Laboratory Results Last 24 Hours Test 10/21/17 17:20 10/21/17 17:27 10/21/17 22:48 10/22/17 07:32 Urine Color YELLOW Urine Appearance CLEAR Urine pH 6.0 Urine Specific [place] 1.018 Urine Protein NEG Urine Glucose (UA) NEG Urine Ketones NEG Urine Occult Blood NEG Urine Nitrite NEG Urine Bilirubin NEG Urine Urobilinogen NEG Urine Leukocyte Esterase NEG Urine WBC (Auto) 1-5 /hpf Urine RBC (Auto) 0-4 /hpf Urine Hyaline Casts (Auto) 1-5 /lpf Urine Epithelial Cells (Auto) 0-5 /lpf Urine Bacteria (Auto) NEG Urine Crystals CALCIUM OXALATE White Blood Count 9.10 K/uL Red Blood Count 4.91 M/uL Hemoglobin 16.1 g/dL Hematocrit 44.9 % Mean Corpuscular Volume 91.4 fL Mean Corpuscular Hemoglobin 32.8 pg Mean Corpuscular Hemoglobin Concent 35.9 g/dl Platelet Count 176 K/uL Mean Platelet Volume 11.1 fL Neutrophils (%) (Auto) 73.1 % Lymphocytes (%) (Auto) 15.7 % Monocytes (%) (Auto) 10.2 % Eosinophils (%) (Auto) 0.5 % Basophils (%) (Auto) 0.2 % Neutrophils # (Auto) 6.64 K/uL Lymphocytes # (Auto) 1.43 K/uL Monocytes # (Auto) 0.93 K/uL Eosinophils # (Auto) 0.05 K/uL Basophils # (Auto) 0.02 K/uL RDW Standard Deviation 40.7 fL RDW Coefficient of Variation 12.1 % Immature Granulocyte % (Auto) 0.3 % Immature Granulocyte # (Auto) 0.03 K/uL Sodium Level 133 mmol/L 134 mmol/L Potassium Level 4.0 mmol/L 4.0 mmol/L Chloride Level 100 mmol/L 102 mmol/L Carbon Dioxide Level 26 mmol/L 26 mmol/L Anion Gap 7.0 mmol/L 6.0 mmol/L Blood Urea Nitrogen 13 mg/dl 12 mg/dl Creatinine 0.92 mg/dl 0.88 mg/dl Est Creatinine Clear Calc Drug Dose 107.8 ml/min 111.2 ml/min Estimated GFR () 103.7 107.5 Estimated GFR (Non- 89.5 92.7 BUN/Creatinine Ratio 14.3 13.5 Random Glucose 138 mg/dl 128 mg/dl Calcium Level 9.4 mg/dl 8.9 mg/dl Total Bilirubin 0.7 mg/dl Direct Bilirubin 0.2 mg/dl Aspartate Amino Transf (AST/SGOT) 30 U/L Alanine Aminotransferase (ALT/SGPT) 52 U/L Alkaline Phosphatase 36 U/L Total Protein 7.6 gm/dl Albumin 3.6 gm/dl Lipase 104 U/L Lactic Acid Level 1.2 mmol/L Amylase Level 16 U/L Magnesium Level 1.8 mg/dl Test 10/22/17 07:33 10/22/17 09:25 Hepatitis C Antibody Screen NEG ABDOMEN AND PELVIS CT WITH IV AND ORAL CONTRAST CT DOSE: 831.31 mGy.cm HISTORY: Diffuse abdominal pain. Fall. History of small bowel obstruction. TECHNIQUE: Multiaxial CT images of the abdomen and pelvis were performed following the use of intravenous and oral contrast. A dose lowering technique was utilized adhering to the principles of ALARA. COMPARISON STUDY: Abdomen and pelvis CT 10/19/2017. FINDINGS: The lung bases are clear. There is a small bleb within the left lung base. No pneumoperitoneum. No pneumatosis. No fractures within the visualized osseous structures. There is a 3 cm diverticulum at the second portion of the duodenum. Small focus of nodular thickening of the gallbladder fundus favors adenomyomatosis. This remains unchanged. The liver, spleen, adrenal glands, and pancreas are unremarkable. Mild bilateral perinephric edema. Normal bladder. No hydronephrosis. No retroperitoneal lymphadenopathy. Normal bladder. Status post subtotal colectomy with ileocolonic anastomosis at the mid sigmoid colon:. There again noted multiple distended and fluid-filled loops of small bowel seen throughout the abdomen. These measure up to 4.1 cm in diameter. The degree of small bowel distention is slightly progressed. A clear transition point is not well identified. However, there is a decompressed short segment of small bowel within the right mid abdomen on image 279. Therefore, this could represent a transition point for a small bowel obstruction. The proximal loops of jejunum are decompressed. IMPRESSION: 1. Multiple mildly distended fluid-filled loops of small bowel have progressed. A clear transition point is not well-defined. However there is a short segment of decompressed small bowel in the right mid abdomen which could represent a transition point for a small bowel obstruction. 2. Postoperative changes as described above. Assessment & Plan 62 year-old male s/p fall one week ago who presented to emergency department with complaint of diarrhea, nausea, vomiting, and abdominal pain. S/p subtotal colectomy in 2000 for colon cancer. NO chemotherapy or radiation. No other abdominal surgeries. No history of bowel obstruction. CT scan showing dilated loops of small bowel measuring up to 4.1 cm. Transition point clearly not identified. No leukocytosis. lactic acid 1.2. DDx: Viral gastroenteritis causing Ileus? vs Partial SBO Plan: Continue conservative treatment: NPO, NGT to LIS, IV Fluids, IV pain management as needed, IV Zofran. Encouraged ambulation Continue current medical management Repeat am labs will follow Dr. Robles has seen and examined patient, agrees with above
[2017-10-22 09:53] LABS: HEMATOCRIT 42.4 % (42-52); HEMOGLOBIN 15.1 g/dL (14.0-18.0); MEAN CELL VOLUME 91.2 fL (80-100); MEAN CORPUSCULAR HEMOGLOBIN 32.5 pg (25-34); MEAN CORPUSCULAR HGB CONC 35.6 g/dl (32-36); MEAN PLATELET VOLUME 11.3 fL (7.4-10.4); PLATELET COUNT 173 K/uL (130-400); RED CELL DISTRIBUTION WIDTH CV 12.3 % (11.5-14.5); RED CELL DISTRIBUTION WIDTH SD 40.9 fL (36.4-46.3); WHITE BLOOD COUNT 6.75 K/uL (4.8-10.8)
--- NOTE | 2017-10-22 13:58 | Hospitalist Progress Note ---
Hospitalist Progress Note Date of Service Oct 22, 2017. (Isabel Whitaker ., LILIAC) Subjective Pt evaluation today including: conversation w/ patient, physical exam, chart review, lab review, review of studies, review of inpatient medication list Pain: 6/10 sharp diffuse abdominal pain PO Intake: NPO Voiding: no voiding problems The patient reports feeling better compared to admission. He states his nausea , dry heaving and sweats have resolved. He does still complain of a 6/10 sharp diffuse abdominal pain, most marked on the right side, that is exacerbated by palpation and movement. He does report passing gas and states he had a small liquidy bowel movement this morning. The patient denies fevers, chills, sweats , chest pain, palpitations, claudication, cough, wheezing, shortness of breath, nausea, vomiting, dysuria, hematuria, urinary retention, paralysis, weakness, numbness and tingling. Additional Comments: See HPI for pertinent positives and negatives. All other systems reviewed and negative. (Isabel Whitaker, LILIAC) Objective Vital Signs Date Time Temp Pulse Resp B/P (MAP) Pulse Ox O2 Delivery O2 Flow Rate FiO2 10/22/17 08:16 36.6 65 16 121/75 (90) 95 Room Air 10/22/17 07:15 Room Air 10/22/17 00:54 Room Air 10/21/17 23:48 36.7 69 16 129/79 (96) 95 Room Air 10/21/17 23:35 36.5 74 18 150/93 95 Room Air 10/21/17 22:10 69 18 140/79 96 Room Air 10/21/17 20:18 79 16 154/88 96 Room Air 10/21/17 18:54 80 18 162/91 95 Room Air 10/21/17 15:26 36.8 83 16 164/99 96 Room Air (Isabel Whitaker PA-C) Physical Exam Notes: General appearance: +Obese. Well-developed, well-nourished, no apparent distress Head: Normocephalic, atraumatic Eyes: Normal inspection, PERRL, EOMI ENT: +NGT in place. Normal ENT inspection, hearing grossly normal, pharynx normal Neck: Supple, no JVD, trachea midline Respiratory/Chest: Lungs clear to auscultation, normal breath sounds, no respiratory distress Cardiovascular: Regular rate & rhythm, no gallop, no murmur Abdomen/GI: +Distended. Diffusely TTP. Guarding. Hypoactive bowel sounds. Extremities/Musculoskeletal: Normal inspection, no calf tenderness, no pedal edema Neurological/Psych: Alert, normal mood/affect, oriented x 3 Skin: Normal color, warm/dry, no rash (Isabel Whitaker ., JIMY) Laboratory Results Last 24 Hours Test 10/21/17 17:20 10/21/17 17:27 10/21/17 22:48 10/22/17 07:32 Urine Color YELLOW Urine Appearance CLEAR Urine pH 6.0 Urine Specific [place] 1.018 Urine Protein NEG Urine Glucose (UA) NEG Urine Ketones NEG Urine Occult Blood NEG Urine Nitrite NEG Urine Bilirubin NEG Urine Urobilinogen NEG Urine Leukocyte Esterase NEG Urine WBC (Auto) 1-5 /hpf Urine RBC (Auto) 0-4 /hpf Urine Hyaline Casts (Auto) 1-5 /lpf Urine Epithelial Cells (Auto) 0-5 /lpf Urine Bacteria (Auto) NEG Urine Crystals CALCIUM OXALATE White Blood Count 9.10 K/uL 6.75 K/uL Red Blood Count 4.91 M/uL 4.65 M/uL Hemoglobin 16.1 g/dL 15.1 g/dL Hematocrit 44.9 % 42.4 % Mean Corpuscular Volume 91.4 fL 91.2 fL Mean Corpuscular Hemoglobin 32.8 pg 32.5 pg Mean Corpuscular Hemoglobin Concent 35.9 g/dl 35.6 g/dl Platelet Count 176 K/uL 173 K/uL Mean Platelet Volume 11.1 fL 11.3 fL Neutrophils (%) (Auto) 73.1 % Lymphocytes (%) (Auto) 15.7 % Monocytes (%) (Auto) 10.2 % Eosinophils (%) (Auto) 0.5 % Basophils (%) (Auto) 0.2 % Neutrophils # (Auto) 6.64 K/uL Lymphocytes # (Auto) 1.43 K/uL Monocytes # (Auto) 0.93 K/uL Eosinophils # (Auto) 0.05 K/uL Basophils # (Auto) 0.02 K/uL RDW Standard Deviation 40.7 fL 40.9 fL RDW Coefficient of Variation 12.1 % 12.3 % Immature Granulocyte % (Auto) 0.3 % Immature Granulocyte # (Auto) 0.03 K/uL Sodium Level 133 mmol/L 134 mmol/L Potassium Level 4.0 mmol/L 4.0 mmol/L Chloride Level 100 mmol/L 102 mmol/L Carbon Dioxide Level 26 mmol/L 26 mmol/L Anion Gap 7.0 mmol/L 6.0 mmol/L Blood Urea Nitrogen 13 mg/dl 12 mg/dl Creatinine 0.92 mg/dl 0.88 mg/dl Est Creatinine Clear Calc Drug Dose 107.8 ml/min 111.2 ml/min Estimated GFR () 103.7 107.5 Estimated GFR (Non- 89.5 92.7 BUN/Creatinine Ratio 14.3 13.5 Random Glucose 138 mg/dl 128 mg/dl Calcium Level 9.4 mg/dl 8.9 mg/dl Total Bilirubin 0.7 mg/dl Direct Bilirubin 0.2 mg/dl Aspartate Amino Transf (AST/SGOT) 30 U/L Alanine Aminotransferase (ALT/SGPT) 52 U/L Alkaline Phosphatase 36 U/L Total Protein 7.6 gm/dl Albumin 3.6 gm/dl Lipase 104 U/L Lactic Acid Level 1.2 mmol/L Amylase Level 16 U/L Magnesium Level 1.8 mg/dl Test 10/22/17 07:33 Hepatitis C Antibody Screen NEG (Isabel Whitaker PA-C) Assessment and Plan 62 y/o male with a history of HLD and colon cancer s/p subtotal colectomy w/ anastomosis in 2000 who presents with abdominal pain, nausea and dry heaves, and abdominal distention. Small bowel obstruction--improving -Admit to med/surg -NPO -D5NSS + 20 KCl at 100 cc/hr -NGT in place, continue on low intermittent suction -General surgery consulted, appreciate recs: Continue medical management -Lactic acid, lipase, amylase unremarkable -Morphine 4 mg IV q3h prn pain, Zofran prn nausea HLD -Fish oil on hold H/o colon cancer s/p colectomy--noted DVT prophylaxis -Heparin 5000 units SC q8h -SCDs (Isabel Whitaker PA-C) Supervising Note Dr. Rajput I performed a history and physical examination on the patient. I reviewed above note and agree with it. I discussed plan with APC and patient. During my face to face encounter with the patient, I answered all of the patient's questions. (Carson Rajput M.D.)
[2017-10-22 14:58] VITALS: BP 112/69; PULSE 64; TEMP 36.4; O2SAT 93
[2017-10-22 16:18] LABS: PTT PATIENT 26.3 SECONDS (21.0-31.0)
[2017-10-22] MEDS: HEPARIN SOD 5000 UNIT/0.5 ML CARP SQ SCH (21:46)
[2017-10-22 23:10] VITALS: BP 119/69; PULSE 67; TEMP 36.6; O2SAT 95
[2017-10-22] MEDS ORDERED: D5NSS + 20MEQ KCL 1,000 ML IV SCH (23:15)
[2017-10-23] MEDS: HEPARIN SOD 5000 UNIT/0.5 ML CARP SQ SCH ×3 (05:29→21:35)
[2017-10-23 08:00] VITALS: BP 128/78; PULSE 64; TEMP 36.6; O2SAT 95
[2017-10-23 08:19] LABS: HEMATOCRIT 40.9 % (42-52); HEMOGLOBIN 14.1 g/dL (14.0-18.0); MEAN CELL VOLUME 93.6 fL (80-100); MEAN CORPUSCULAR HEMOGLOBIN 32.3 pg (25-34); MEAN CORPUSCULAR HGB CONC 34.5 g/dl (32-36); MEAN PLATELET VOLUME 10.5 fL (7.4-10.4); PLATELET COUNT 154 K/uL (130-400); RED CELL DISTRIBUTION WIDTH CV 12.5 % (11.5-14.5); RED CELL DISTRIBUTION WIDTH SD 42.2 fL (36.4-46.3); WHITE BLOOD COUNT 4.16 K/uL (4.8-10.8)
[2017-10-23 08:24] VITALS: O2SAT 95
[2017-10-23 08:51] LABS: CALCIUM 8.5 mg/dl (8.5-10.1); CREATININE 0.93 mg/dl (0.60-1.40); POTASSIUM 4.1 mmol/L (3.5-5.1)
[2017-10-23] MEDS ORDERED: NURSING VERBAL MED ORDER ONE (10:30)
[2017-10-23] MEDS: D5NSS + 20MEQ KCL 1,000 ML IV SCH ×2 (10:57→20:35)
[2017-10-23] MEDS ORDERED: ACETAMINOPHEN 325 MG TAB PO PRN (14:00)
--- NOTE | 2017-10-23 14:23 | Surgery Progress Note ---
Surgery Progress Note Date of Service Oct 23, 2017. Subjective Post OP Day: HD # 2 + feeling well, + bowel movement, + flatus, No complaints, No chest pain, No SOB , No nausea, No vomiting Has not further abdominal pain Objective Vital Signs: Date Time Temp Pulse Resp B/P (MAP) Pulse Ox O2 Delivery O2 Flow Rate FiO2 10/23/17 08:24 95 Room Air 10/23/17 08:00 36.6 64 20 128/78 (95) 95 Room Air 10/23/17 07:10 Room Air 10/22/17 23:58 Room Air 10/22/17 23:10 36.6 67 16 119/69 (86) 95 Room Air 10/22/17 15:52 Room Air 10/22/17 14:58 36.4 64 18 112/69 (83) 93 Room Air Physical Exam: nasogastric drainage (clear, bilious output, minimal last shift 50 cc) General Appearance: WD/WN, no apparent distress Head: normocephalic, atraumatic Respiratory/Chest: no respiratory distress, no accessory muscle use Abdomen: non tender, non distended, soft, no organomegaly, no pulsatile mass, + abnormal bowel sounds (hypoactive) Laboratory Results: Results Past 24 Hours Test 10/22/17 15:54 10/23/17 07:59 Range/Units Prothrombin Time 11.0 9.0-12.0 SECONDS Prothromb Time International Ratio 1.0 0.9-1.1 Activated Partial Thromboplast Time 26.3 21.0-31.0 SECONDS Partial Thromboplastin Ratio 1.0 White Blood Count 4.16 4.8-10.8 K/uL Red Blood Count 4.37 4.7-6.1 M/uL Hemoglobin 14.1 14.0-18.0 g/dL Hematocrit 40.9 42-52 % Mean Corpuscular Volume 93.6 80-100 fL Mean Corpuscular Hemoglobin 32.3 25-34 pg Mean Corpuscular Hemoglobin Concent 34.5 32-36 g/dl RDW Standard Deviation 42.2 36.4-46.3 fL RDW Coefficient of Variation 12.5 11.5-14.5 % Platelet Count 154 130-400 K/uL Mean Platelet Volume 10.5 7.4-10.4 fL Sodium Level 139 136-145 mmol/L Potassium Level 4.1 3.5-5.1 mmol/L Chloride Level 108 98-107 mmol/L Carbon Dioxide Level 27 21-32 mmol/L Anion Gap 4.0 3-11 mmol/L Blood Urea Nitrogen 15 7-18 mg/dl Creatinine 0.93 0.60-1.40 mg/dl Est Creatinine Clear Calc Drug Dose 105.2 ml/min Estimated GFR () 102.3 Estimated GFR (Non- 88.3 BUN/Creatinine Ratio 16.5 10-20 Random Glucose 110 70-99 mg/dl Calcium Level 8.5 8.5-10.1 mg/dl Assessment & Plan Partial SBO- resolving -vitals stable - no leukocytosis - + bm and flatus - abdominal distention completely resolved, abdomen soft/nontender Plan: Discontinue NGT start clear liquids advance diet as tolerated Encourage ambulation Continue current medical management Dr. Ontiveros to cover this weekend Dr. Robles has seen and examined patient, agrees with above
[2017-10-23 15:20] VITALS: BP 118/70; PULSE 67; TEMP 36.8; O2SAT 98
--- NOTE | 2017-10-23 23:00 | Progress Note ---
Subjective Date of Service: Oct 23, 2017. Subjective Pt evaluation today including: conversation w/ patient, physical exam 62 yo male who is here for SBO. Patient reports having surgeries in the past from multiple polyps diagnosed in his early 40s. He reports that prior to arrival he had significant abd. pain which was found to be SBO. He reports that he required a colectomy. His son has also required multiple colonoscopies from age 9. Patient reports that he NG tube was removed, and is tolerating his diet. He states he has been passing gas, and has had 2 bowel movement. Problem List Medical Problems: (1) Right flank pain Status: Acute (2) Right low back pain Status: Acute (3) Right sided abdominal pain Status: Acute (4) Small bowel obstruction Status: Acute (5) Status post fall Status: Acute Review of Systems Constitutional: No fever Eyes: No worsening of vision Respiratory: No cough Cardiac: No chest pain Abdomen: No pain Neurologic: No memory loss Psychiatric: No depression symptoms, No anhedonism Endo: No fatigue Skin: No rash All Other Systems: Reviewed and Negative Medications Current Inpatient Medications Medications (Trade) Dose Ordered Sig/[place] Route Start Time Stop Time Status Last Admin Dose Admin Ioversol (Optiray 320) 100 ml UD PRN IV 10/21/17 17:00 10/25/17 16:59 Ondansetron HCl (Zofran Inj) 4 mg Q6H PRN IV 10/21/17 21:45 11/20/17 21:44 Morphine Sulfate (MoRPHine SULFATE INJ) 4 mg Q3H PRN IV 10/21/17 22:15 11/04/17 22:14 10/22/17 09:41 4 MG Heparin Sodium (Porcine) (Heparin Sq 5000 Unit/0.5ml) 5,000 unit Q8 SQ 10/22/17 22:00 11/21/17 21:59 10/24/17 05:45 5,000 UNIT Potassium Chloride/Dextrose/ Sod Cl 1,000 ml @ 75 mls/hr [id number] IV 10/23/17 11:00 11/22/17 10:59 10/24/17 05:43 100 MLS/HR Acetaminophen (Tylenol Tab) 650 mg Q4H PRN PO 10/23/17 14:00 11/22/17 13:59 Objective Vital Signs Date Time Temp Pulse Resp B/P (MAP) Pulse Ox O2 Delivery O2 Flow Rate FiO2 10/23/17 15:50 Room Air 10/23/17 15:20 36.8 67 18 118/70 (86) 98 Room Air 10/23/17 08:24 95 Room Air 10/23/17 08:00 36.6 64 20 128/78 (95) 95 Room Air 10/23/17 07:10 Room Air 10/22/17 23:58 Room Air 10/22/17 23:10 36.6 67 16 119/69 (86) 95 Room Air Physical Exam Comments: General appearance: +Obese. Well-developed, well-nourished, no apparent distress Head: Normocephalic, atraumatic Eyes: Normal inspection, PERRL, EOMI ENT: +NGT removed Normal ENT inspection, hearing grossly normal, pharynx normal Neck: Supple, no JVD, trachea midline Respiratory/Chest: Lungs clear to auscultation, normal breath sounds, no respiratory distress Cardiovascular: Regular rate & rhythm, no gallop, no murmur Abdomen/GI: +mildly Distended. BS heard, no longer tender to palpation Extremities/Musculoskeletal: Normal inspection, no calf tenderness, no pedal edema Neurological/Psych: Alert, normal mood/affect, oriented x 3 Skin: Normal color, warm/dry, no rash Laboratory Results Last 24 Hours Test 10/23/17 07:59 White Blood Count 4.16 K/uL Red Blood Count 4.37 M/uL Hemoglobin 14.1 g/dL Hematocrit 40.9 % Mean Corpuscular Volume 93.6 fL Mean Corpuscular Hemoglobin 32.3 pg Mean Corpuscular Hemoglobin Concent 34.5 g/dl RDW Standard Deviation 42.2 fL RDW Coefficient of Variation 12.5 % Platelet Count 154 K/uL Mean Platelet Volume 10.5 fL Sodium Level 139 mmol/L Potassium Level 4.1 mmol/L Chloride Level 108 mmol/L Carbon Dioxide Level 27 mmol/L Anion Gap 4.0 mmol/L Blood Urea Nitrogen 15 mg/dl Creatinine 0.93 mg/dl Est Creatinine Clear Calc Drug Dose 105.2 ml/min Estimated GFR () 102.3 Estimated GFR (Non- 88.3 BUN/Creatinine Ratio 16.5 Random Glucose 110 mg/dl Calcium Level 8.5 mg/dl Assessment and Plan 62 y/o male with a history of HLD and colon cancer s/p subtotal colectomy w/ anastomosis in 2000 who presents with abdominal pain, nausea and dry heaves, and abdominal distention. Small bowel obstruction--improving -Admit to med/surg -Initiated his diet today: with clear liquid. He had dinner, and tolerated it. -D5NSS + 20 KCl at 100 cc/hr. will stop. -General surgery consulted, appreciate recs: Continue medical management -Lactic acid, lipase, amylase unremarkable -Morphine 4 mg IV q3h prn pain, Zofran prn nausea -Has not required morphine today HLD -Fish oil on hold H/o colon cancer s/p colectomy--noted Likely has FAP DVT prophylaxis -Heparin 5000 units SC q8h -SCDs Continued [facility] stay due to: inadequate po fluid intake Discharge planning: home
[2017-10-23 23:22] VITALS: BP 113/65; PULSE 62; TEMP 36.5; O2SAT 95
[2017-10-24] MEDS: D5NSS + 20MEQ KCL 1,000 ML IV SCH (05:43)
[2017-10-24] MEDS: HEPARIN SOD 5000 UNIT/0.5 ML CARP SQ SCH (05:45)
--- NOTE | 2017-10-24 06:12 | Surgery Progress Note ---
Surgery Progress Note Date of Service Oct 24, 2017. Subjective ++ flatus, bowel movement- wants to go home on clear liquids - tolerated Objective Vital Signs: Date Time Temp Pulse Resp B/P (MAP) Pulse Ox O2 Delivery O2 Flow Rate FiO2 10/23/17 23:24 Room Air 10/23/17 23:22 36.5 62 16 113/65 (81) 95 Room Air 10/23/17 15:50 Room Air 10/23/17 15:20 36.8 67 18 118/70 (86) 98 Room Air 10/23/17 08:24 95 Room Air 10/23/17 08:00 36.6 64 20 128/78 (95) 95 Room Air 10/23/17 07:10 Room Air General Appearance: no apparent distress Respiratory/Chest: no respiratory distress Abdomen: normal bowel sounds, soft Laboratory Results: Results Past 24 Hours Test 10/23/17 07:59 10/24/17 04:44 Range/Units White Blood Count 4.16 4.8-10.8 K/uL Red Blood Count 4.37 4.7-6.1 M/uL Hemoglobin 14.1 14.0-18.0 g/dL Hematocrit 40.9 42-52 % Mean Corpuscular Volume 93.6 80-100 fL Mean Corpuscular Hemoglobin 32.3 25-34 pg Mean Corpuscular Hemoglobin Concent 34.5 32-36 g/dl RDW Standard Deviation 42.2 36.4-46.3 fL RDW Coefficient of Variation 12.5 11.5-14.5 % Platelet Count 154 130-400 K/uL Mean Platelet Volume 10.5 7.4-10.4 fL Sodium Level 139 136-145 mmol/L Potassium Level 4.1 3.5-5.1 mmol/L Chloride Level 108 98-107 mmol/L Carbon Dioxide Level 27 21-32 mmol/L Anion Gap 4.0 3-11 mmol/L Blood Urea Nitrogen 15 7-18 mg/dl Creatinine 0.93 0.60-1.40 mg/dl Est Creatinine Clear Calc Drug Dose 105.2 ml/min Estimated GFR () 102.3 Estimated GFR (Non- 88.3 BUN/Creatinine Ratio 16.5 10-20 Random Glucose 110 70-99 mg/dl Calcium Level 8.5 8.5-10.1 mg/dl Assessment & Plan 10/24/17- will adv to low fiber diet this am- if tolerates , can d/c later today if ok with medical team.
[2017-10-24 07:05] VITALS: BP 108/68; PULSE 63; TEMP 36.3; O2SAT 96
[2017-10-24 07:18] LABS: HEMOGLOBIN 13.2 g/dL (14.0-18.0); MEAN CELL VOLUME 94.4 fL (80-100); MEAN CORPUSCULAR HGB CONC 33.8 g/dl (32-36); MEAN PLATELET VOLUME 10.8 fL (7.4-10.4); PLATELET COUNT 161 K/uL (130-400); RED CELL DISTRIBUTION WIDTH CV 12.5 % (11.5-14.5); RED CELL DISTRIBUTION WIDTH SD 43.1 fL (36.4-46.3)
[2017-10-24 07:45] LABS: CALCIUM 8.1 mg/dl (8.5-10.1); CREATININE 0.87 mg/dl (0.60-1.40); POTASSIUM 3.6 mmol/L (3.5-5.1)
[2017-10-24] MEDS ORDERED: INFLUENZA VIRUS QUAD VACCINE 0.5 ML SYR IM. ONE (09:30)
[2017-10-24] MEDS ORDERED: INFLUENZA ADMINISTRATION CHARGE ONE (09:30)
--- NOTE | 2017-10-24 12:11 | Discharge Instructions ---
Discharge Instructions Date of Service Oct 24, 2017. Admission Reason for Admission: Sbo (Small Bowel Obstruction) Discharge Discharge Diagnosis / Problem: Small bowel obstruction Discharge Goals Goal(s): Decrease discomfort, Improve function, Diagnostic testing, Therapeutic intervention Activity Recommendations Activity Limitations: as noted below Lifting Limitations: no more than 25 pounds Exercise/Sports Limitations: as tolerated Shower/Bathe: no limitations . Instructions / Follow-Up Instructions / Follow-Up You were admitted to the hospital presenting with a small bowel obstruction. This is likely due to adhesions that have formed following your abdominal surgeries. You were treated medically first with a nasogastric tube, no eating , IV fluids and IV pain control. As your bowels/gas started to move again, you were advanced to a liquid diet, which you tolerated well, and then back to solid food diet. As you are tolerating regular food well, you are medically stable for discharge. Medications: *No changes have been made to your home medications, continue to take as instructed. Recommendations: *Do not lift more than 25 pounds until you follow up with the worker's compensation appointed provider. Follow up: *You will be scheduled to follow up with your primary care provider regarding your hospital stay in about one week. Please seek medical attention if you experience fevers, chills, sweats, dizziness/lightheadedness, loss of consciousness, chest pain, shortness of breath, nausea, vomiting, numbness or tingling. Current Hospital Diet Patient's current hospital diet: Low Fiber Diet Discharge Diet Recommended Diet: Low Fiber Diet Pending Studies Studies pending at discharge: no Medical Emergencies . Who to Call and When: Medical Emergencies: If at any time you feel your situation is an emergency, please call 911 immediately. . Non-Emergent Contact Non-Emergency issues call your: Primary Care Provider Call Non-Emergent contact if: you have a fever, your pain is not controlled, your pain is worsening, your pain is unusual for you, your pain is concerning you, you have any medication questions . Past History Medical & Surgical History: (1) Small bowel obstruction . "Provider Documentation" section prepared by Isabel Whitaker. . VTE Core Measure Inpt VTE Proph given/why not?: Unfractionated heparin SQ
--- NOTE | 2017-10-24 12:23 | Discharge Summary ---
Discharge Summary Date of Service Oct 24, 2017. Discharge Summary Admission Date: Oct 21, 2017 at 22:08 Discharge Date: Oct 24, 2017 Discharge Disposition: Home Principal Diagnosis: Small bowel obstruction Problems/Secondary Diagnoses: HLD, colon cancer s/p subtotal colectomy w/anastomosis in 2000 Immunizations: Have You Had Influenza Vaccine: No History of Tetanus Vaccine?: No History of Pneumococcal: No History of Hepatitis B Vaccine: No Procedures: ABDOMEN AND PELVIS CT WITH IV AND ORAL CONTRAST CT DOSE: 831.31 mGy.cm HISTORY: Diffuse abdominal pain. Fall. History of small bowel obstruction. TECHNIQUE: Multiaxial CT images of the abdomen and pelvis were performed following the use of intravenous and oral contrast. A dose lowering technique was utilized adhering to the principles of ALARA. COMPARISON STUDY: Abdomen and pelvis CT 10/19/2017. FINDINGS: The lung bases are clear. There is a small bleb within the left lung base. No pneumoperitoneum. No pneumatosis. No fractures within the visualized osseous structures. There is a 3 cm diverticulum at the second portion of the duodenum. Small focus of nodular thickening of the gallbladder fundus favors adenomyomatosis. This remains unchanged. The liver, spleen, adrenal glands, and pancreas are unremarkable. Mild bilateral perinephric edema. Normal bladder. No hydronephrosis. No retroperitoneal lymphadenopathy. Normal bladder. Status post subtotal colectomy with ileocolonic anastomosis at the mid sigmoid colon:. There again noted multiple distended and fluid-filled loops of small bowel seen throughout the abdomen. These measure up to 4.1 cm in diameter. The degree of small bowel distention is slightly progressed. A clear transition point is not well identified. However, there is a decompressed short segment of small bowel within the right mid abdomen on image 279. Therefore, this could represent a transition point for a small bowel obstruction. The proximal loops of jejunum are decompressed. IMPRESSION: 1. Multiple mildly distended fluid-filled loops of small bowel have progressed. A clear transition point is not well-defined. However there is a short segment of decompressed small bowel in the right mid abdomen which could represent a transition point for a small bowel obstruction. 2. Postoperative changes as described above. Consultations: General surgery Medication Reconciliation Continued Medications: Fexofenadine Hcl (Yaneth) 180 Mg Tab 180 MG PO DAILY, TAB Fish Oil (Friendship-3) 1 Ea Cap 1 CAP PO QD, CAP Probenecid (Benemid) 500 Mg Tab 500 MG PO BID Discharge Exam Patient reports feeling well. He tolerated a low fiber diet for breakfast well without any abdominal pain, nausea, or vomiting. He denies any complaints currently. He states that he is passing gas and had a bowel movement this morning. The patient denies fevers, chills, sweats, chest pain, palpitations, claudication, cough, wheezing, shortness of breath, nausea, vomiting, abdominal pain, dysuria, hematuria, urinary retention, paralysis, weakness, numbness and tingling. Constitutional: No fever, No chills, No sweats Eyes: No worsening of vision, No eye pain, No diplopia ENT: No hearing loss, No nasal symptoms, No trouble swallowing Respiratory: No cough, No wheezing, No shortness of breath Cardiovascular: No chest pain, No claudication, No palpitations Abdomen: No pain, No nausea, No vomiting Musculoskeletal: No joint pain, No muscle pain, No swelling Genitourinary - Male: No dysuria, No urinary retention, No hematuria Neurologic: No paralysis, No weakness, No numbness/tingling Integumentary: No rash, No itch, No color change General appearance: +Obese. Well-developed, well-nourished, no apparent distress Head: Normocephalic, atraumatic Eyes: Normal inspection, PERRL, EOMI ENT: Normal ENT inspection, hearing grossly normal, pharynx normal Neck: Supple, no JVD, trachea midline Respiratory/Chest: Lungs clear to auscultation, normal breath sounds, no respiratory distress Cardiovascular: Regular rate & rhythm, no gallop, no murmur Abdomen/GI: +LUQ mildly TTP. Normal bowel sounds, soft Extremities/Musculoskeletal: Normal inspection, no calf tenderness, no pedal edema Neurological/Psych: Alert, normal mood/affect, oriented x 3 Skin: Normal color, warm/dry, no rash Hospital Course 62 y/o male with a history of HLD and colon cancer s/p subtotal colectomy w/ anastomosis in 2000 who presents with abdominal pain, nausea and dry heaves, and abdominal distention. Small bowel obstruction--resolving -Admit to med/surg -D/C D5NSS + 20 KCl at 100 cc/hr -General surgery consulted, appreciate recs: Advance to low fiber diet, if tolerates can be discharged from surgical standpoint -Tolerating low fiber diet -Lactic acid, lipase, amylase unremarkable -Morphine 4 mg IV q3h prn pain, Zofran prn nausea -Advised to maintain 25 pound lifting restriction until f/u with worker's comp provider HLD -Fish oil on hold, can resume on d/c H/o colon cancer s/p colectomy--noted DVT prophylaxis -Heparin 5000 units SC q8h -SCDs Code Status -Level I, FULL RESUSCITATION STATUS Total Time Spent: Greater than 30 minutes This includes examination of the patient, discharge planning, medication reconciliation, and communication with other providers. Discharge Instructions Please refer to the electronic Patient Visit Report (Discharge Instructions) for additional information. Additional Copies To Michael Eng M.D.
[2017-10-24 14:05] VITALS: BP 108/68; PULSE 63; TEMP 36.3; O2SAT 96
== END 2017-10-24 14:08 | disposition home or self-care (01) | DRG 390 ==
LOC: C.EDB 15:14 → C.MSW 22:08 → ENRESERV 22:36
PROVIDERS: ADMIT Internal Medicine; ATTEND Internal Medicine Sports Medicine
DX: K56.600 Partial intestinal obstruction, unspecified as to cause (principal); Z51.81 Encounter for therapeutic drug level monitoring; Z79.899 Other long term (current) drug therapy; Z85.038 Personal history of other malignant neoplasm of large intestine; Z90.49 Acquired absence of other specified parts of digestive tract; Z91.81 History of falling; Z82.0 Family history of epilepsy and other diseases of the nervous system

== ENCOUNTER → 2017-11-26 | Outpatient (CLI) | payer OTHER ==
[~2017-11-26] MED LIST changes: -IBUP-1050 PO
== END | disposition home or self-care (01) ==
LOC: C.CPL 10:54
DX: S83.231A Complex tear of medial meniscus, current injury, right knee, initial encounter (principal); X58.XXXA Exposure to other specified factors, initial encounter

== ENCOUNTER 2017-12-23 06:43 | Emergency (ER) | payer OTHER ==
[~2017-12-23] VITALS: Ht 185.4 cm; Wt 102.1 kg
[2017-12-23 06:45] VITALS: Ht 185.4 cm; Wt 102.1 kg
[2017-12-23] MEDS ORDERED: HYDROmorphone INJ 1 MG/ML SYR IV STA (06:54)
[2017-12-23] MEDS ORDERED: METOCLOPRAMIDE HCL INJ 5 MG/ML 2 ML VIAL IV STA (06:54)
--- NOTE | 2017-12-23 06:58 | EMERGENCY ROOM VISIT NOTE ---
History Report prepared by Ildefonso: Ruby Day Under the Supervision of: Dr. Gal Rahman M.D. First contact with patient: 06:50 Chief Complaint: ABDOMINAL PAIN Stated Complaint: PAIN IN RIGHT SIDE Nursing Triage Summary: pt reports right side abd pain . has hx of bowel obstruction a couple months ago. might block up again feeling bloated. last bm this am. pain increases with bm and stool this am was liquid . feels nauseated and has headache History of Present Illness The patient is a 62 year old male who presents to the Emergency Room with complaints of worsening abdominal pain beginning last night. The patient reports right sided abdominal pain which worsens when he has a bowel movement. He notes liquid stools beginning this morning. The patient also reports nausea and feeling "bloated". He denies any vomiting. The patient was seen in the the ED in October and had he had a bowel obstructions. He reports his symptoms now are similar to the previous time he had a bowel obstruction. The patient has a history of an appendectomy. Source of History: patient Onset: last night Position: abdomen Quality: other (pain) Timing: worsening Modifying Factors (Worsening): defecation Associated Symptoms: + nausea, + abdominal pain, + diarrhea, No vomiting Review of Systems See HPI for pertinent positives & negatives. A total of 10 systems reviewed and were otherwise negative. Past Medical & Surgical Medical Problems: (1) Colon cancer (2) SBO (small bowel obstruction) Surgical Problems: (1) History of appendectomy Family History Patient reports no known family medical history. Social History Smoking Status: Never Smoker Marital Status: Housing Status: lives with significant other Occupation Status: employed Current/Historical Medications Scheduled Docusate Sodium (Colace), 1 CAP PO BID Fexofenadine Hcl (Yaneth), 180 MG PO DAILY Ondasetron Odt (Zofran Odt), 4 MG SL Q6H Probenecid (Benemid), 500 MG PO BID Senna (Senokot), 1 TAB PO HS Allergies Coded Allergies: Allopurinol (Verified Allergy, Intermediate, HIVES AND ITCHING, 12/23/17) Sheep Allergy (Verified Allergy, Unknown, WOOL, 12/23/17) Physical Exam Vital Signs Date Time Temp Pulse Resp B/P (MAP) Pulse Ox O2 Delivery O2 Flow Rate FiO2 12/23/17 10:50 36.8 68 16 110/81 97 12/23/17 10:38 68 12/23/17 10:36 69 16 97 Room Air 12/23/17 09:06 71 12 94 Room Air 12/23/17 09:01 110/81 12/23/17 08:53 72 13 93 Room Air 12/23/17 08:30 137/88 12/23/17 08:23 75 13 95 Room Air 12/23/17 08:18 73 12 92 Room Air 12/23/17 08:01 110/80 12/23/17 07:48 77 13 92 Room Air 12/23/17 07:43 80 16 92 Room Air 12/23/17 07:31 124/83 12/23/17 07:26 86 12/23/17 07:22 115/75 12/23/17 07:15 86 18 115/75 96 Room Air 12/23/17 06:45 36.8 86 18 117/95 96 Room Air Physical Exam GENERAL: Awake, alert, well-appearing, in no acute distress HENT: Normocephalic, atraumatic. Oropharynx unremarkable. EYES: Normal conjunctiva. Sclera non-icteric. NECK: Supple. No nuchal rigidity. FROM. No JVD. RESPIRATORY: Clear to auscultation. CARDIAC: Regular rate, normal rhythm. Extremities warm and well perfused. Pulses equal. ABDOMEN: Exquisitely tender in the right sided abdomen with positive guarding. Soft, non-distended. No rebound. No masses. RECTAL: Deferred. MUSCULOSKELETAL: Chest examination reveals no tenderness. The back is symmetrical on inspection without obvious abnormality. There is no CVA tenderness to palpation. No joint edema. LOWER EXTREMITIES: Calves are equal size bilaterally and non-tender. No edema. No discoloration. NEURO: Normal sensorium. No sensory or motor deficits noted. SKIN: No rash or jaundice noted. Medical Decision & Procedures ER Provider Diagnostic Interpretation: Radiology results as stated below per my review and radiologist interpretation: ABD/PELVIS IV AND ORAL CONT FINDINGS: Refrigeration Tech topogram: Unremarkable. Lung bases: Minimal basilar opacities, likely atelectasis. Left lower lobe bleb or bulla noted at the posterior medial segment. Normal heart size. Coronary artery calcification. No pericardial or pleural effusion. Liver: Relative atrophy of the right hepatic lobe and hypertrophy of the left hepatic lobe may be congenital as this appearance is unchanged since 2008. No focal lesion. Patent hepatic vasculature. Biliary: No intrahepatic or extrahepatic biliary ductal dilatation. Normal gallbladder. Pancreas: Mild parenchymal atrophy. Spleen: Normal. Adrenal glands: Normal. Kidneys and ureters: Nonspecific minimal perinephric fat stranding. Normal enhancement of the renal parenchyma allowing for the corticomedullary phase. No hydronephrosis. No nephrolithiasis. Ureters normal. Bladder: Incompletely evaluated secondary to underdistention. Pelvic organs: Prostate enlargement likely secondary to benign prostatic hyperplasia. Bowel: Postsurgical changes of subtotal colectomy with an enterocolonic anastomosis at the level of the residual distal sigmoid colon/upper rectum. Oral contrast has reached the rectum. No bowel obstruction. No abnormal small bowel distention. Prominent duodenal diverticulum noted at the junction of the descending and horizontal portion. Peritoneal cavity: No free fluid or intraperitoneal gas. Lymph nodes: Few subcentimeter lymph nodes noted in the perihepatic and portacaval regions, possibly reactive. Additionally, numerous subcentimeter prominent mesenteric lymph nodes evident. No pathologically enlarged lymph nodes by CT size criteria. Vasculature: Atherosclerosis of the normal caliber abdominal aorta. IVC patent. Abdominal wall: Postsurgical changes of the ventral midline abdominal wall. Mild fatty atrophy of the rectus abdominis muscles greater on the right. Musculoskeletal: Degenerative changes of the spine. IMPRESSION: 1. Postsurgical changes of subtotal colectomy. No bowel obstruction or acute intra-abdominal pathology. 2. No nephrolithiasis or hydronephrosis. Electronically signed by: Carlos Melendez M.D. Laboratory Results 12/23/17 07:10 Red Blood Count 5.14, Mean Corpuscular Volume 92.6, Mean Corpuscular Hemoglobin 33.3, Mean Corpuscular Hemoglobin Concent 35.9, Mean Platelet Volume 11.0, Neutrophils (%) (Auto) 58.6, Lymphocytes (%) (Auto) 28.0, Monocytes (%) (Auto) 11.9, Eosinophils (%) (Auto) 1.0, Basophils (%) (Auto) 0.1, Neutrophils # (Auto ) 4.09, Lymphocytes # (Auto) 1.96, Monocytes # (Auto) 0.83, Eosinophils # (Auto ) 0.07, Basophils # (Auto) 0.01 12/23/17 07:10 Test 12/23/17 07:10 12/23/17 07:30 White Blood Count 6.99 K/uL (4.8-10.8) Red Blood Count 5.14 M/uL (4.7-6.1) Hemoglobin 17.1 g/dL (14.0-18.0) Hematocrit 47.6 % (42-52) Mean Corpuscular Volume 92.6 fL (80-100) Mean Corpuscular Hemoglobin 33.3 pg (25-34) Mean Corpuscular Hemoglobin Concent 35.9 g/dl (32-36) Platelet Count 162 K/uL (130-400) Mean Platelet Volume 11.0 fL (7.4-10.4) Neutrophils (%) (Auto) 58.6 % Lymphocytes (%) (Auto) 28.0 % Monocytes (%) (Auto) 11.9 % Eosinophils (%) (Auto) 1.0 % Basophils (%) (Auto) 0.1 % Neutrophils # (Auto) 4.09 K/uL (1.4-6.5) Lymphocytes # (Auto) 1.96 K/uL (1.2-3.4) Monocytes # (Auto) 0.83 K/uL (0.11-0.59) Eosinophils # (Auto) 0.07 K/uL (0-0.5) Basophils # (Auto) 0.01 K/uL (0-0.2) RDW Standard Deviation 42.6 fL (36.4-46.3) RDW Coefficient of Variation 12.7 % (11.5-14.5) Immature Granulocyte % (Auto) 0.4 % Immature Granulocyte # (Auto) 0.03 K/uL (0.00-0.02) Anion Gap 8.0 mmol/L (3-11) Est Creatinine Clear Calc Drug Dose 83.2 ml/min Estimated GFR () 77.5 Estimated GFR (Non- 66.9 BUN/Creatinine Ratio 18.5 (10-20) Calcium Level 8.6 mg/dl (8.5-10.1) Total Bilirubin 0.5 mg/dl (0.2-1) Direct Bilirubin 0.1 mg/dl (0-0.2) Aspartate Amino Transf (AST/SGOT) 58 U/L (15-37) Alanine Aminotransferase (ALT/SGPT) 77 U/L (12-78) Alkaline Phosphatase 53 U/L (45-117) Total Protein 8.3 gm/dl (6.4-8.2) Albumin 4.0 gm/dl (3.4-5.0) Lipase 176 U/L (73-393) Urine Color DK YELLOW Urine Appearance CLEAR (CLEAR) Urine pH 5.5 (4.5-7.5) Urine Specific Mccormick 1.029 (1.000-1.030) Urine Protein TRACE (NEG) Urine Glucose (UA) NEG (NEG) Urine Ketones NEG (NEG) Urine Occult Blood NEG (NEG) Urine Nitrite NEG (NEG) Urine Bilirubin NEG (NEG) Urine Urobilinogen NEG (NEG) Urine Leukocyte Esterase NEG (NEG) Urine WBC (Auto) 1-5 /hpf (0-5) Urine RBC (Auto) 0-4 /hpf (0-4) Urine Hyaline Casts (Auto) 5-10 /lpf (0-5) Urine Epithelial Cells (Auto) 5-10 /lpf (0-5) Urine Bacteria (Auto) NEG (NEG) Labs reviewed by ED physician. Medications Administered Medications (Trade) Dose Ordered Sig/Mendoza Route Start Time Stop Time Status Last Admin Dose Admin Metoclopramide HCl (Reglan Inj) 10 mg NOW STAT IV 12/23/17 06:54 12/23/17 06:56 DC 12/23/17 07:15 10 MG Hydromorphone HCl (Dilaudid Inj) 1 mg NOW STAT IV 12/23/17 06:54 12/23/17 06:56 DC 12/23/17 07:16 1 MG ED Course 0651: Past medical records reviewed. The patient was evaluated in room B2. A complete history and physical examination was performed. 0654:Ordered Dilaudid Inj 1 mg IV, Reglan Inj 10 mg IV. 1030: I updated the patient on his test results. 1042: Upon reexamination the patient is resting comfortably. I discussed results and treatment plan with the patient. He verbalizes agreement and understanding. The patient is ready for discharge. Medical Decision Differential diagnosis: Etiologies such as appendicitis, diverticulitis, PUD, biliary pathology, UTI, pancreatitis, obstruction, mesenteric ischemia, aortic pathology, infections, inflammatory bowel disease, renal colic, as well as others were entertained. This is a 62-year-old male who presents emergency department complaining of abdominal pain. The patient was given Reglan as well as Dilaudid in the emergency department. Serial abdominal examinations are performed and the patient in the emergency department and at no time to the patient exhibited surgical abdomen. The patient does not have an elevation in his white blood cell count has a normal renal profile has a normal liver profile. In addition he has a normal CAT scan of the abdomen pelvis with contrast going all the way down to the rectum. Based on these findings along with the fact that the patient is afebrile high feel he can be safely discharged home however I recommended a clear liquid diet for the next 48 hours. In addition I also recommended that the patient return to the emergency department if he develops severe abdominal pain or nausea and vomiting. He was given pain medication for home along with stool softeners. Both patient and were in agreement with treatment plan. Medication Reconcilliation Current Medication List: was personally reviewed by me Blood Pressure Screening Patient's blood pressure: Normal blood pressure Impression Primary Impression: Abdominal pain Scribe Attestation The scribe's documentation has been prepared under my direction and personally reviewed by me in its entirety. I confirm that the note above accurately reflects all work, treatment, procedures, and medical decision making performed by me. Departure Information Dispostion Home / Self-Care Prescriptions Docusate Sodium (COLACE) 100 Mg Cap 1 CAP PO BID for 30 Days, #60 CAP Prov: Gal Rahman MD 12/23/17 Senna (Senokot) 8.6 Mg Tab 1 TAB PO HS for 30 Days, #30 TAB Prov: Gal Rahman MD 12/23/17 Ondasetron Odt (ZOFRAN ODT) 4 Mg Tab 4 MG SL Q6H for Nausea, #6 TAB Prov: Gal Rahman MD 12/23/17 Referrals Michael Eng M.D. (PCP) Forms Call Back Authorization, HOME CARE DOCUMENTATION FORM, IMPORTANT VISIT INFORMATION Patient Instructions Abdominal Pain, ED Diet Clear Liquid, My [facility] Additional Instructions Clear liquid diet next 48 hours You received narcotic or benzodiazepene medication while in the emergency room today. This is an addictive medication that may cause drowziness as well as constipation. Do not drive, operate heavy machinery, or drink alcohol under the influence of this medication. Take 600 mg Ibuprofen every 6 hours Take Percocet for breakthrough pain Return if unable to keep anything down You have been examined and treated today on an emergency basis only. This is not a substitute for, or an effort to provide, complete comprehensive medical care. It is impossible to recognize and treat all injuries or illnesses in a single emergency department visit. It is therefore important that you follow up closely with Dr Oracio Sosa. Call as soon as possible for an appointment. Thank you for your time and consideration. I look forward to speaking with you again soon. Please don't hesitate to call us if you have any questions. Problem Qualifiers Primary Impression: Abdominal pain Abdominal location: generalized Qualified Codes: R10.84 - Generalized abdominal pain
[2017-12-23 07:31] LABS: BASO % 0.1 %; BASO ABS # 0.01 K/uL (0-0.2); EOS ABS # 0.07 K/uL (0-0.5); HEMATOCRIT 47.6 % (42-52); HEMOGLOBIN 17.1 g/dL (14.0-18.0); IG# 0.03 K/uL (0.00-0.02); LYMPH ABS # 1.96 K/uL (1.2-3.4); MEAN CELL VOLUME 92.6 fL (80-100); MEAN CORPUSCULAR HEMOGLOBIN 33.3 pg (25-34); MEAN CORPUSCULAR HGB CONC 35.9 g/dl (32-36); MONO % 11.9 %; MONO ABS # 0.83 K/uL (0.11-0.59); NEUT % 58.6 %; NEUT ABS # 4.09 K/uL (1.4-6.5); PLATELET COUNT 162 K/uL (130-400); RED CELL DISTRIBUTION WIDTH CV 12.7 % (11.5-14.5); RED CELL DISTRIBUTION WIDTH SD 42.6 fL (36.4-46.3); WHITE BLOOD COUNT 6.99 K/uL (4.8-10.8)
[2017-12-23 07:48] LABS: CALCIUM 8.6 mg/dl (8.5-10.1); CREATININE 1.17 mg/dl (0.60-1.40); POTASSIUM 4.1 mmol/L (3.5-5.1)
[2017-12-23 07:51] LABS: TOTAL PROTEIN 8.3 gm/dl (6.4-8.2)
--- NOTE | 2017-12-23 09:49 | DIAGNOSTIC IMAGING REPORT ---
ABD/PELVIS IV AND ORAL CONT CLINICAL HISTORY: 62 years-old Male presenting with Pt c/o Rt sided flank pain . TECHNIQUE: Multidetector CT of the abdomen and pelvis was performed after the administration of oral and intravenous contrast. IV contrast: 92 mL of Optiray 320. A dose lowering technique was used consistent with the principles of ALARA (as low as reasonably achievable). COMPARISON: 10/21/2017. CT DOSE (mGy.cm): The estimated cumulative dose is 786.50 mGy.cm. FINDINGS: Contract Admin topogram: Unremarkable. Lung bases: Minimal basilar opacities, likely atelectasis. Left lower lobe bleb or bulla noted at the posterior medial segment. Normal heart size. Coronary artery calcification. No pericardial or pleural effusion. Liver: Relative atrophy of the right hepatic lobe and hypertrophy of the left hepatic lobe may be congenital as this appearance is unchanged since 2008. No focal lesion. Patent hepatic vasculature. Biliary: No intrahepatic or extrahepatic biliary ductal dilatation. Normal gallbladder. Pancreas: Mild parenchymal atrophy. Spleen: Normal. Adrenal glands: Normal. Kidneys and ureters: Nonspecific minimal perinephric fat stranding. Normal enhancement of the renal parenchyma allowing for the corticomedullary phase. No hydronephrosis. No nephrolithiasis. Ureters normal. Bladder: Incompletely evaluated secondary to underdistention. Pelvic organs: Prostate enlargement likely secondary to benign prostatic hyperplasia. Bowel: Postsurgical changes of subtotal colectomy with an enterocolonic anastomosis at the level of the residual distal sigmoid colon/upper rectum. Oral contrast has reached the rectum. No bowel obstruction. No abnormal small bowel distention. Prominent duodenal diverticulum noted at the junction of the descending and horizontal portion. Peritoneal cavity: No free fluid or intraperitoneal gas. Lymph nodes: Few subcentimeter lymph nodes noted in the perihepatic and portacaval regions, possibly reactive. Additionally, numerous subcentimeter prominent mesenteric lymph nodes evident. No pathologically enlarged lymph nodes by CT size criteria. Vasculature: Atherosclerosis of the normal caliber abdominal aorta. IVC patent. Abdominal wall: Postsurgical changes of the ventral midline abdominal wall. Mild fatty atrophy of the rectus abdominis muscles greater on the right. Musculoskeletal: Degenerative changes of the spine. IMPRESSION: 1. Postsurgical changes of subtotal colectomy. No bowel obstruction or acute intra-abdominal pathology. 2. No nephrolithiasis or hydronephrosis. Electronically signed by: Carlos Melendez M.D. 12/23/2017 9:48 AM Dictated Date/Time: 12/23/2017 9:40 AM
[2017-12-23] MEDS ORDERED: OXYC-57 PO (10:30)
[2017-12-23] MEDS ORDERED: DOCU-94 PO (10:30)
[2017-12-23] MEDS ORDERED: SENN-61 PO (10:30)
[2017-12-23] MEDS ORDERED: ONDA4TAB10 SL (10:30)
[2017-12-23 10:50] VITALS: BP 110/81; PULSE 68; TEMP 36.8; O2SAT 97
== END 2017-12-23 10:52 | disposition home or self-care (01) ==
LOC: C.EDB 06:45
DX: R10.11 Right upper quadrant pain (principal); R10.31 Right lower quadrant pain; Z90.89 Acquired absence of other organs; Z85.038 Personal history of other malignant neoplasm of large intestine; Z88.8 Allergy status to other drugs, medicaments and biological substances; Z91.048 Other nonmedicinal substance allergy status